=== PATIENT | female | born 1940 | race Two or more races ===

== ENCOUNTER 2016-09-10 14:09 | Inpatient (IN) | payer MEDICARE, MEDICAID ==
[~2016-09-10] VITALS: Ht 157.5 cm; Wt 46.4 kg
[~2016-09-10 14:09] MED LIST: ARIC5TAB PO; GERISUS PO; GLIM1 PO; HYDR-4009 PR; LISI-515 PO; MAPA325T PO; METO25TA3 PO; MILKSUS PO; MIRA33504 PO; OMEP20TA PO; QUES4POW PO; RANI150C PO; SYSTSOL15 EACH EYE
[2016-09-10 15:55] VITALS: BP 153/79; PULSE 97; RESP 18; TEMP 97.8; O2SAT 98
--- NOTE | 2016-09-10 15:55 | PD ---
HPI Chief Complaint: inability to ambulate Time Seen by Provider: 15:52 Travel History International Travel<30 days: No Contact w/Intl Traveler<30days: No Traveled to known affect area: No History of Present Illness HPI 76-year-old female with history of dementia, diabetes, hypertension, sent in from alf by ambulance because after lunch today the patient wasn't able to ambulate. The patient is usually able to ambulate with a walker. When EMS arrived to the alf the patient was able to pivot on her feet. There were no focal neurologic findings. Upon arrival to the emergency department the patient denies any physical complaints. She is able to tell me her name. She denies pain in her head or neck. No chest pain or dyspnea. No abdominal pain. No pain in any joint or extremity. PFSH Past Medical History Alzheimer's Disease: Yes Cardiovascular Problems: Yes High Cholesterol: Yes Dementia: Yes Diabetes: Yes GERD: Yes Hypertension: Yes Menopausal: Yes Social History Alcohol Use: No Tobacco Use: No Substance Use: No Allergies-Medications (Allergen,Severity, Reaction): Coded Allergies: No Known Allergies (Verified , 09/10/16) Reported Meds & Prescriptions Reported Meds & Active Scripts Active Reported Questran (Cholestyramine) 4 Gm/Pkt Powd 4 Gm PO QID PRN 1 packet contains 4gm of cholestyramine. Miralax Powder (Polyethylene Glycol 3350 Powder) 17 Gm Powd 17 Gm PO BID PRN Mix and dissolve one measuring cap-ful (17 grams) in water or juice. Sameera-Lanta Liq (Pikqqmqz-Epgtncxam-Xchbbxvzawp Liq) 200-200-20 Mg/5 Ml Susp 10 Ml PO Q8HR PRN Mapap (Acetaminophen) 325 Mg Tab 650 Mg PO Q6HR PRN Milk of Magnesia Liq (Magnesium Hydroxide) 400 Mg/5 Ml Susp 30 Ml PO DIRECTED PRN Metoprolol Tartrate 25 Mg Tab 25 Mg PO HS Aricept (Donepezil) 5 Mg Tab 5 Mg PO HS Systane Balance Voodoo Opth Drops (Propylene Glycol Opth Drops) 0.6% Soln 1 Drop EACH EYE BID Ranitidine (Ranitidine HCl) 150 Mg Cap 150 Mg PO BID Lisinopril 20 Mg Tab 20 Mg PO DAILY Amaryl (Glimepiride) 1 Mg Tab 0.5 Mg PO DAILY Take with breakfast or first main meal Review of Systems Except as stated in HPI: all other systems reviewed are Neg Physical Exam Narrative GENERAL: Well-developed, frail, elderly appearing female, awake, alert, no acute distress. SKIN: Warm and dry. HEAD: Atraumatic. Normocephalic. EYES: Pupils equal and round. No scleral icterus. No injection or drainage. ENT: Mucous membranes pink and moist. NECK: Trachea midline. No JVD. No nuchal rigidity. CARDIOVASCULAR: Regular rate and rhythm. RESPIRATORY: No accessory muscle use. Clear to auscultation. Breath sounds equal bilaterally. GASTROINTESTINAL: Abdomen soft, non-tender, nondistended. Hepatic and splenic margins not palpable. MUSCULOSKELETAL: No obvious deformities. No clubbing. No cyanosis. No edema. Normal range of motion in all joints and extremities without deformity and without tenderness. NEUROLOGICAL: Awake and alert. No obvious cranial nerve deficits. Motor grossly within normal limits. Normal speech. No focal deficits. Data Data Last Documented VS Vital Signs Date Time Temp Pulse Resp B/P Pulse Ox O2 Delivery O2 Flow Rate FiO2 09/10/16 16:00 16 99 Room Air 09/10/16 16:00 102 09/10/16 15:55 97.8 153/79 Orders Complete Blood Count With Diff (09/10/16 15:52) Comprehensive Metabolic Panel (09/10/16 15:52) Prothrombin Time / Inr (Pt) (09/10/16 15:52) Act Partial Throm Time (Ptt) (09/10/16 15:52) Urinalysis - C+S If Indicated (09/10/16 15:52) Iv Access Insert/Monitor (09/10/16 15:52) Ecg Monitoring (09/10/16 15:52) Oximetry (09/10/16 15:52) Sodium Chloride 0.9% Flush (Ns Flush) (09/10/16 16:00) Electrocardiogram (09/10/16 15:52) Cath For Specimen (09/10/16 15:52) Urine Culture (09/10/16 17:25) Ceftriaxone Inj (Rocephin Inj) (09/10/16 18:00) Ct Brain W/O Iv Contrast(Rout) (09/10/16 ) Sodium Polysty Sulfate Liq (Kayexalate L (09/10/16 18:15) Sodium Chlor 0.9% 1000 Ml Inj (Ns 1000 M (09/10/16 18:15) Insulin Human Regular Inj (Novolin R Inj (09/10/16 18:15) Dextrose 50% In Margret (Vial) Inj (D50w (Vi (09/10/16 18:15) Labs Laboratory Tests Test 09/10/16 09/10/16 16:10 17:25 White Blood Count 11.2 TH/MM3 Red Blood Count 4.96 MIL/MM3 Hemoglobin 14.4 GM/DL Hematocrit 43.0 % Mean Corpuscular Volume 86.7 FL Mean Corpuscular Hemoglobin 29.1 PG Mean Corpuscular Hemoglobin 33.6 % Concent Red Cell Distribution Width 13.6 % Platelet Count 182 TH/MM3 Mean Platelet Volume 9.5 FL Neutrophils (%) (Auto) 56.8 % Lymphocytes (%) (Auto) 33.7 % Monocytes (%) (Auto) 7.8 % Eosinophils (%) (Auto) 1.1 % Basophils (%) (Auto) 0.6 % Neutrophils # (Auto) 6.4 TH/MM3 Lymphocytes # (Auto) 3.8 TH/MM3 Monocytes # (Auto) 0.9 TH/MM3 Eosinophils # (Auto) 0.1 TH/MM3 Basophils # (Auto) 0.1 TH/MM3 CBC Comment DIFF FINAL Differential Comment Prothrombin Time 12.6 SEC Prothromb Time International 1.1 RATIO Ratio Activated Partial 28.3 SEC Thromboplast Time Sodium Level 141 MEQ/L Potassium Level 5.9 MEQ/L Chloride Level 109 MEQ/L Carbon Dioxide Level 24.2 MEQ/L Anion Gap 8 MEQ/L Blood Urea Nitrogen 32 MG/DL Creatinine 1.32 MG/DL Estimat Glomerular Filtration 39 ML/MIN Rate Random Glucose 93 MG/DL Calcium Level 9.5 MG/DL Total Bilirubin 0.8 MG/DL Aspartate Amino Transf 19 U/L (AST/SGOT) Alanine Aminotransferase 24 U/L (ALT/SGPT) Alkaline Phosphatase 82 U/L Total Protein 8.3 GM/DL Albumin 4.1 GM/DL Urine Color LIGHT-YELLOW Urine Turbidity HAZY Urine pH 6.0 Urine Specific [place] 1.009 Urine Protein 100 mg/dL Urine Glucose (UA) NEG mg/dL Urine Ketones NEG mg/dL Urine Occult Blood NEG Urine Nitrite NEG Urine Bilirubin NEG Urine Urobilinogen LESS THAN 2.0 MG/DL Urine Leukocyte Esterase LARGE Urine RBC 6 /hpf Urine WBC 83 /hpf Urine Squamous Epithelial 1 /hpf Cells Urine Bacteria OCC /hpf Microscopic Urinalysis Comment CATH-CULTURE IND MDM Medical Decision Making Medical Screen Exam Complete: Yes Emergency Medical Condition: Yes Medical Record Reviewed: Yes Differential Diagnosis UTI, intracranial abnormality, electrolyte abnormality, dehydration, TIA Narrative Course Vital signs reviewed. CBC is unremarkable. CMP is remarkable for BUN 32, creatinine 1.32, GFR 39, potassium 5.9 UA is suggestive of UTI. CT head: Normal exam EKG does not show any signs of hyperkalemia. The patient was given a dose of Kayexalate, insulin, and D50 for her hyperkalemia. She was given a liter of normal saline and was also given 1 g of Rocephin IV for her UTI. The patient's daughter Dipika is at the bedside and was made aware of all findings. The patient will be admitted for further treatment and evaluation of hyperkalemia, UTI, generalized weakness. Case discussed with [facility] hospitalist SERA Bender. The patient will be admitted to their service under Dr. Bloom. Diagnosis Primary Impression: Generalized weakness Additional Impressions: Hyperkalemia UTI (urinary tract infection) Qualified Code: N39.0 - Urinary tract infection without hematuria, site unspecified Admitting Information Admitting Physician Requests: Observation Adonay Saxena MD Sep 10, 2016 15:55
[2016-09-10 16:00] VITALS: RESP 16; O2SAT 99
[2016-09-10] MEDS ORDERED: SODIUM CHLORIDE 0.9% FLUSH 5 ML FLUSH IVF PRN (16:00)
[2016-09-10 16:35] LABS: AUTOMATED NEUTROPHIL # 6.4 TH/MM3 (1.8-7.7); BASOPHIL # 0.1 TH/MM3 (0-0.2); BASOPHIL % 0.6 % (0.0-2.0); EOSINOPHIL # 0.1 TH/MM3 (0-0.4); EOSINOPHIL % 1.1 % (0.0-4.0); HEMO FLAGS DIFF FINAL; LYMPH % 33.7 % (9.0-44.0); LYMPHOCYTE # 3.8 TH/MM3 (1.0-4.8); MEAN CELL VOLUME 86.7 FL (80.0-100.0); MEAN CORPUSCULAR HEMOGLOBIN 29.1 PG (27.0-34.0); MEAN CORPUSCULAR HGB CONC 33.6 % (32.0-36.0); MONO % 7.8 % (0.0-8.0); NEUT % 56.8 % (16.0-70.0); PLATELET COUNT 182 TH/MM3 (150-450); RED BLOOD COUNT 4.96 MIL/MM3 (4.00-5.30); RED CELL DISTRIBUTION WIDTH 13.6 % (11.6-17.2); WHITE BLOOD COUNT 11.2 TH/MM3 (4.0-11.0)
[2016-09-10 16:42] LABS: APTT (PATIENT) 28.3 SEC (24.3-30.1); INTERNATIONAL NORMALIZED RATIO 1.1 RATIO; PROTHROMBIN TIME - PATIENT 12.6 SEC (9.8-11.6)
[2016-09-10 16:51] LABS: ALT (GPT) 24 U/L (10-53); ANION GAP 8 MEQ/L (5-15); AST (GOT) 19 U/L (15-37); BICARBONATE 24.2 MEQ/L (21.0-32.0); BLOOD UREA NITROGEN 32 MG/DL (7-18); CHLORIDE 109 MEQ/L (98-107); GLOMERULAR FILTRATION RATE 39 ML/MIN (>89); POTASSIUM 5.9 MEQ/L (3.5-5.1); SODIUM (NA) 141 MEQ/L (136-145)
[2016-09-10 16:53] LABS: ALKALINE PHOSPHATASE 82 U/L (45-117); TOTAL BILIRUBIN ADULT 0.8 MG/DL (0.2-1.0)
[2016-09-10 17:53] LABS: BACTERIA, URINE OCC /hpf; BLOOD, URINE NEG (NEG); COMMENT (UR) CATH-CULTURE IND; CULTURE IF INDICATED CATH CULTURE IND; GLUCOSE,URINE NEG (NEG); KETONE, URINE NEG (NEG); NITRITE,URINE NEG (NEG); SQUAMOUS EPITHELIAL CELL URINE 1 /hpf (0-5); URINE COLOR LIGHT-YELLOW (YELLW/STRAW)
[2016-09-10] MEDS ORDERED: cefTRIAXone INJ 1,000 MG in SODIUM CHLORIDE 0.9% INJ 100 ML IV ONE (18:00)
[2016-09-10] MEDS ORDERED: INSULIN HUMAN REGULAR 1,000 UNITS/10 ML VIAL IVP ONE (18:15)
[2016-09-10] MEDS ORDERED: SODIUM CHLOR 0.9% 1000 ML INJ 1,000 ML IV ONE (18:15)
[2016-09-10] MEDS ORDERED: DEXTROSE 50% IN WATER 50 ML VIAL(D50) IV PUSH ONE (18:15)
[2016-09-10] MEDS ORDERED: SODIUM POLYSTYRENE SULFONATE SUSP 15 GM/60 ML CUP PO ONE (18:15)
--- NOTE | 2016-09-10 19:02 | RADRPT ---
EXAM DATE/TIME: 09/10/2016 18:34 [facility] COMPARISON: CT BRAIN W/O CONTRAST, March 22, 2014, 12:39. INDICATIONS : Generalized weakness with inability to ambulate. RADIATION DOSE: 28.04 CTDIvol (mGy) MEDICAL HISTORY : Hypertension. Dementia. Alzheimers. SURGICAL HISTORY : None. ENCOUNTER: Initial ACUITY: 1 day PAIN SCALE: 0/10 LOCATION: cranial TECHNIQUE: Multiple contiguous axial images were obtained of the head. Using automated exposure control and adj ustment of the mA and/or kV according to patient size, radiation dose was kept as low as reasonably a chievable to obtain optimal diagnostic quality images. FINDINGS: CEREBRUM: Atrophy. Extensive calcifications involving the cerebellar hemispheres and basal ganglia bilaterally. Some linear calcifications are seen involving the dura overlying both occipital lobes. This is all s table. The ventricles are normal for age. No evidence of midline shift, mass lesion, hemorrhage or a cute infarction. No extra-axial fluid collections are seen. POSTERIOR FOSSA: The cerebellum and brainstem are intact. The 4th ventricle is midline. The cerebellopontine angle i s unremarkable. EXTRACRANIAL: The visualized portion of the orbits is intact. SKULL: The calvaria is intact. No evidence of skull fracture. CONCLUSION: 1. No acute intracranial abnormality. Toni Love Jr., MD on September 10, 2016 at 18:58 Board Certified Radiologist. This report was verified electronically.
--- NOTE | 2016-09-10 19:18 | EKG ---
Date Performed: 09/10/2016 Time Performed: 16:11:25 PTAGE: 76 years EKG: BASELINE ARTIFACT PRESENT. Sinus rhythm POSSIBLE LEFT ATRIAL ENLARGEMENT BORDERLINE ECG NO SIGNIFICANT CHANGE FROM PRIOR ELECTROCARDIOGRAM. PREVIOUS TRACING : 03/22/2014 12.54 DOCTOR: Filemon Weaver Interpretating Date/Time 09/10/2016 19:18:06
[2016-09-10] MEDS: SODIUM CHLOR 0.9% 1000 ML INJ 1,000 ML IV SCH (19:51)
[2016-09-10] MEDS ORDERED: NALOXONE HCL 0.4 MG/ML AMP IV PRN (20:00)
[2016-09-10] MEDS ORDERED: GLUCAGON 1 MG/ML VIAL OTHER PRN (20:00)
[2016-09-10] MEDS ORDERED: SODIUM CHLORIDE 0.9% FLUSH 5 ML FLUSH FLUSH PRN (20:00)
[2016-09-10] MEDS ORDERED: DEXTROSE 50% IN WATER 50 ML VIAL(D50) IV PUSH PRN (20:00)
[2016-09-10] MEDS ORDERED: ONDANSETRON HCL 4 MG/2 ML VIAL IVP PRN (20:00)
[2016-09-10 20:01] VITALS: BP 156/78; PULSE 79; RESP 18; O2SAT 100
[2016-09-10] MEDS ORDERED: PILL SPLITTER OTHER PRN (20:15)
[2016-09-10] MEDS: SODIUM CHLORIDE 0.9% FLUSH 5 ML FLUSH FLUSH SCH (21:00)
[2016-09-10] MEDS: INSULIN ASPART SUPPLEMENTAL SCALE SQ SCH (21:00)
[2016-09-10] MEDS: ARTIFICIAL TEARS OPTH SOLN 15 ML BTL EACH EYE SCH (21:00)
[2016-09-10] MEDS: DONEPEZIL HCL 5 MG TAB PO SCH (21:19)
[2016-09-10] MEDS: METOPROLOL TARTRATE 25 MG TAB PO SCH (21:20)
[2016-09-10] MEDS: FAMOTIDINE 20 MG TAB PO SCH (21:20)
[2016-09-10 23:30] VITALS: BP 138/68; PULSE 83; RESP 18; O2SAT 99
[2016-09-11] VITALS (11 sets, daily range): BP systolic 112–175; BP diastolic 56–91; PULSE 67–101; RESP 17–20; TEMP 97.5–98; O2SAT 91–99
[2016-09-11] MEDS ORDERED: LORazepam 2 MG/ML VIAL IV SCH (03:15)
[2016-09-11] MEDS ORDERED: RESP: ALBUTEROL 2.5 MG/IPRATROPIUM 0.5 MG NEB (PRN) NEB (03:30)
[2016-09-11] MEDS ORDERED: LORazepam 2 MG/ML VIAL IV PUSH ONE (03:30)
[2016-09-11] MEDS ORDERED: RESP: RACEPINEPHRINE 2.25% 0.5 ML NEB NEB PRN (03:30)
[2016-09-11] MEDS: RESP: ALBUTEROL 2.5 MG/IPRATROPIUM 0.5 MG NEB (SCH) NEB ×4 (05:10→19:50)
[2016-09-11] MEDS: SODIUM CHLOR 0.9% 1000 ML INJ 1,000 ML IV SCH ×2 (05:51→15:51)
[2016-09-11] MEDS: INSULIN ASPART SUPPLEMENTAL SCALE SQ SCH ×4 (06:00→21:06)
[2016-09-11 06:16] LABS: BASOPHIL # 0.1 TH/MM3 (0-0.2); BASOPHIL % 0.4 % (0.0-2.0); EOSINOPHIL # 0.1 TH/MM3 (0-0.4); EOSINOPHIL % 0.6 % (0.0-4.0); HEMATOCRIT 42.5 % (35.0-46.0); HEMO FLAGS DIFF FINAL; LYMPH % 21.2 % (9.0-44.0); MEAN CELL VOLUME 84.3 FL (80.0-100.0); MEAN CORPUSCULAR HEMOGLOBIN 28.8 PG (27.0-34.0); MEAN CORPUSCULAR HGB CONC 34.2 % (32.0-36.0); NEUT % 69.8 % (16.0-70.0); PLATELET COUNT 147 TH/MM3 (150-450); RED BLOOD COUNT 5.05 MIL/MM3 (4.00-5.30); RED CELL DISTRIBUTION WIDTH 13.6 % (11.6-17.2); WHITE BLOOD COUNT 14.3 TH/MM3 (4.0-11.0)
[2016-09-11 06:18] LABS: BICARBONATE 19.2 MEQ/L (21.0-32.0); POTASSIUM 4.1 MEQ/L (3.5-5.1)
[2016-09-11] MEDS: ARTIFICIAL TEARS OPTH SOLN 15 ML BTL EACH EYE SCH ×2 (09:00→21:00)
[2016-09-11] MEDS: SODIUM CHLORIDE 0.9% FLUSH 5 ML FLUSH FLUSH SCH ×2 (09:00→21:00)
[2016-09-11] MEDS: FAMOTIDINE 20 MG TAB PO SCH ×2 (09:00→21:05)
--- NOTE | 2016-09-11 09:30 | HHI.PR ---
Objective Objective Results - Vital Signs Date Time Temp Pulse Resp B/P Pulse Ox O2 Delivery O2 Flow Rate FiO2 09/11/16 09:20 97 21 09/11/16 08:00 97.8 90 17 126/62 97 09/11/16 04:53 98.0 67 18 121/62 98 09/11/16 02:42 93 09/11/16 01:13 98.0 88 18 112/56 98 09/10/16 23:30 83 18 138/68 99 Room Air 09/10/16 20:01 79 18 156/78 100 Room Air 09/10/16 16:00 16 99 Room Air 09/10/16 16:00 102 16 98 Room Air 09/10/16 15:55 97.8 97 18 153/79 98 Result Diagram: 09/11/16 0552 09/11/16 0552 Other Results Laboratory Tests Test 09/10/16 09/10/16 09/11/16 16:10 17:25 05:52 White Blood Count 11.2 14.3 Red Blood Count 4.96 5.05 Hemoglobin 14.4 14.6 Hematocrit 43.0 42.5 Mean Corpuscular Volume 86.7 84.3 Mean Corpuscular Hemoglobin 29.1 28.8 Mean Corpuscular Hemoglobin 33.6 34.2 Concent Red Cell Distribution Width 13.6 13.6 Platelet Count 182 147 Mean Platelet Volume 9.5 10.2 Neutrophils (%) (Auto) 56.8 69.8 Lymphocytes (%) (Auto) 33.7 21.2 Monocytes (%) (Auto) 7.8 8.0 Eosinophils (%) (Auto) 1.1 0.6 Basophils (%) (Auto) 0.6 0.4 Neutrophils # (Auto) 6.4 10.0 Lymphocytes # (Auto) 3.8 3.0 Monocytes # (Auto) 0.9 1.1 Eosinophils # (Auto) 0.1 0.1 Basophils # (Auto) 0.1 0.1 CBC Comment DIFF FINAL DIFF FINAL Differential Comment Prothrombin Time 12.6 Prothromb Time International 1.1 Ratio Activated Partial 28.3 Thromboplast Time Sodium Level 141 140 Potassium Level 5.9 4.1 Chloride Level 109 112 Carbon Dioxide Level 24.2 19.2 Anion Gap 8 9 Blood Urea Nitrogen 32 29 Creatinine 1.32 1.21 Estimat Glomerular Filtration 39 43 Rate Random Glucose 93 134 Calcium Level 9.5 9.1 Total Bilirubin 0.8 Aspartate Amino Transf 19 (AST/SGOT) Alanine Aminotransferase 24 (ALT/SGPT) Alkaline Phosphatase 82 Total Protein 8.3 Albumin 4.1 Urine Color LIGHT-YELLOW Urine Turbidity HAZY Urine pH 6.0 Urine Specific [place] 1.009 Urine Protein 100 Urine Glucose (UA) NEG Urine Ketones NEG Urine Occult Blood NEG Urine Nitrite NEG Urine Bilirubin NEG Urine Urobilinogen LESS THAN 2.0 Urine Leukocyte Esterase LARGE Urine RBC 6 Urine WBC 83 Urine Squamous Epithelial 1 Cells Urine Bacteria OCC Microscopic Urinalysis Comment CATH-CULTURE IND Hematology Comments Date/Time Procedure Status Source Growth 09/10/16 17:25 Urine Culture Received Urine Catheterized Urine Pending Physical Exam Physical Exam PT IS SEEN & EXAMINED D/W ANDER SEE ORDERS SEE H&p WILL F/U Kay Bloom MD Sep 11, 2016 09:30
--- NOTE | 2016-09-11 09:41 | MH ---
cc: RYAN BLOOM MD DATE OF ADMISSION: 09/10/2016 DATE OF 1940 CHIEF COMPLAINT According to the record, unable to ambulate, generalized weakness. HISTORY OF PRESENT ILLNESS This is a 76 year-old [place] female who is currently in a assisted. She was brought in by ambulance due to the patient being unable to ambulate. Normally, the patient can ambulate with a walker according to the records and is able to pivot on her feet with assistance. This acute event was seen after lunch on 09/10/2016. The patient is a poor historian and unable at this time to answer any questions or give any history. According to the record, she does have a significant history of dementia, diabetes and hypertension. In the ER according to the nurse, the patient was verbal. She did speak Ivorian, but became restless and was climbing out of the bed. The patient then started speaking an unknown language and staff could not communicate with her. She was given Ativan 0.5 mg IV which was effective to sedate her and protect her safety against falls. Currently the patient is drowsy. She does have a minimal response verbal response, but is not speaking yes or know. She is relaxed. Does not appear to be in any acute pain. No facial grimace. No grimace upon tactile stimulation. Respiratory rate is regular without shortness of breath. The patient's color is pale with pink mucous membranes. PAST MEDICAL HISTORY According to the record: 1. Alzheimer's disease 2. Cardiovascular problems 3. Hyperlipidemia 4. Dementia 5. GERD 6. Diabetes 7. Hypertension 8. Postmenopausal PAST SURGICAL HISTORY Unknown ALLERGIES No known allergies according to the record. SOCIAL HISTORY No alcohol, tobacco or illicit drugs listed. MEDICATIONS Reconciled include: 1. Questran 2. MiraLax powder 3. Sameera-Lanta liquid 4. Acetaminophen 5. Milk of Magnesia 6. Metoprolol 25 mg p.o. h.s. 7. Aricept 5 mg p.o. h.s. 8. Systane balance ophthalmic drops 9. Zantac 150 mg p.o. twice a day 10. Lisinopril 20 mg daily 11. Amaryl 0.5 mg p.o. daily given with breakfast VITAL SIGNS Include: Temperature 97.8, pulse 90, respiratory rate 17, blood pressure 126/62, O2 sat 97. FAMILY HISTORY Unknown. Please note there is no family with her. REVIEW OF SYSTEMS Unable to obtain secondary to the patient's altered mental status. Information gathered from record. PHYSICAL EXAM GENERAL: This is a well-developed, frail elderly female resting in the bed eyes closed, non-verbal at this time in no acute distress. SKIN: Skin is pale, warm and dry. HEAD, EYES, EARS, NOSE, AND THROAT: Atraumatic, normocephalic. PERRLA. No scleral icterus. Mucous membranes are pink and slightly dry. No drainage from her eyes or nasal cavity. NECK: Supple. No rigidity. No JVD. CARDIOVASCULAR: Regular rate and regular. No murmurs, rubs or gallops audible. RESPIRATORY: Essentially clear anteriorly and posteriorly with low volumes, but equal bilateral. GASTROINTESTINAL: Abdomen is soft, nontender and nondistended. Active bowel sounds in all four quadrants. MUSCULOSKELETAL: No edema. No clubbing. No obvious deformities. NEUROLOGIC: She is drowsy, responds minimally to loud verbal with a yes or no sound, but not verbalizing anything at this time. PSYCHIATRIC: Calm, flat affect. LABORATORY DATA WBC count 14.3, RBC 5.05, hemoglobin 14.6, hematocrit 42.5, platelet count 147, neutrophil auto count 10, monocyte auto count 1.1. Chemistry levels sodium 140, potassium 4.1, chloride 112, carbon dioxide 19.2, anion gap 9, BUN 29, creatinine 1.21, glucose 134, GFR 43. Please note on admission in the ER, the patient's potassium level was 5.9. This was treated and is now 4.1. Coag PT-INR 1.1. Urine is light yellow and hazy. Urine pH is 6, specific gravity 1.009, protein is 100, negative for glucose, ketones, blood, nitrites, bilirubin, large amount of leukocyte esterase. Bacteria, occasional casts. Urine culture is pending. IMAGING STUDIES CT of the head shows no acute intracranial abnormality. ASSESSMENT AND PLAN 1. Generalized weakness, possible UTI without hematuria. 2. Renal insufficiency 3. Hyperkalemia now resolved. 4. History of Alzheimer's dementia. 5. Diabetes mellitus 6. History of GERD. 7. History of hypertension. PLAN 1. Our plan is to admit for observation. 2. We will reconcile her medications. 3. Monitor Accu-Chek's a.c. and h.s. with sliding scale and Protocol. 4. Cardiac monitoring vital signs q4 5. Bedrest 6. Heart healthy diet with monitoring of swallow. 7. As needed medications for fever and monitor temp, pulse, respirations and blood pressure. 8. We will monitor her labs. 9. SCD's 10. DVT prophylaxis 11. PUD prophylaxis The patient is full code, full aggressive care per her admission to the hospital and we will support. Dictated by LAWSON Byers MD RICARDO Patel/SHAILESH /8:54 AM /9:40 AM PT IS SEEN & EXAMINED D/W ANDER SEE ORDERS SEE H&p WILL F/U Ryan Bloom MD Sep 11, 2016 09:30 MTDD
[2016-09-11] MEDS: cefTRIAXone INJ 1,000 MG in SODIUM CHLORIDE 0.9% INJ 100 ML IV SCH ×2 (20:00→21:04)
--- NOTE | 2016-09-11 21:03 | RADRPT ---
EXAM DATE/TIME: 09/11/2016 20:26 [facility] COMPARISON: MRI BRAIN W & W/O CONTRAST, May 11, 2011, 13:43. INDICATIONS : CVA. MEDICAL HISTORY : Diabetes mellitus type 2. SURGICAL HISTORY : None. ENCOUNTER: Initial ACUITY: 1 day PAIN SCORE: Nonresponsive. LOCATION: cranial TECHNIQUE: Multiplanar, multisequence MRI of the brain was performed without contrast. FINDINGS: CEREBRUM: The ventricles are normal for age. No evidence of midline shift, mass lesion, hemorrhage or acute in farction. No extraaxial fluid collections are seen. The pituitary gland and suprasellar cistern are normal in configuration. WHITE MATTER: Extensive chronic small vessel ischemic changes are again noted. There are calcifications in the basa l ganglia bilaterally. POSTERIOR FOSSA: The cerebellum and brainstem are intact. The 4th ventricle is midline. The cerebellopontine angle is unremarkable. The cerebellar tonsils are normal in position. DIFFUSION IMAGING: There are patchy areas of restricted diffusion in the left basal ganglia measuring up to approximatel y 8 mm in greatest diameter. EXTRACRANIAL: The visualized portions of the orbits and paranasal sinuses are unremarkable. CONCLUSION: 1. Patchy areas of restricted diffusion in the left basal ganglia consistent with acute to subacute i nfarctions. 2. Atrophy and extensive chronic small vessel ischemic change. Alfie Clayton MD on September 11, 2016 at 20:58 Board Certified Radiologist. This report was verified electronically.
[2016-09-11] MEDS: DONEPEZIL HCL 5 MG TAB PO SCH (21:05)
[2016-09-11] MEDS: METOPROLOL TARTRATE 25 MG TAB PO SCH (21:05)
[2016-09-12] VITALS (7 sets, daily range): BP systolic 126–161; BP diastolic 73–88; PULSE 93–130; RESP 18–20; TEMP 97.1–100.1; O2SAT 95–100
[2016-09-12] MEDS: SODIUM CHLOR 0.9% 1000 ML INJ 1,000 ML IV SCH ×2 (01:51→12:20)
[2016-09-12] MEDS: RESP: ALBUTEROL 2.5 MG/IPRATROPIUM 0.5 MG NEB (SCH) NEB ×4 (04:20→21:03)
[2016-09-12] MEDS: INSULIN ASPART SUPPLEMENTAL SCALE SQ SCH ×4 (07:00→22:26)
[2016-09-12 07:51] LABS: HEMATOCRIT 41.3 % (35.0-46.0); MEAN CORPUSCULAR HEMOGLOBIN 29.6 PG (27.0-34.0); MEAN CORPUSCULAR HGB CONC 34.9 % (32.0-36.0); PLATELET COUNT 170 TH/MM3 (150-450); RED BLOOD COUNT 4.86 MIL/MM3 (4.00-5.30); RED CELL DISTRIBUTION WIDTH 13.6 % (11.6-17.2); REVIEW FLAG FINAL; WHITE BLOOD COUNT 10.1 TH/MM3 (4.0-11.0)
[2016-09-12 08:22] LABS: BICARBONATE 24.1 MEQ/L (21.0-32.0); POTASSIUM 3.6 MEQ/L (3.5-5.1)
--- NOTE | 2016-09-12 08:37 | HHI.PR ---
Subjective Remarks awake responds to verbal stimuli attempting to talk. Pain, right leg No shortness of breath No nausea vomiting No diarrhea Mild right facial droop (Holley Nassar) Objective Objective Results - Vital Signs Date Time Temp Pulse Resp B/P Pulse Ox O2 Delivery O2 Flow Rate FiO2 09/12/16 08:20 97.1 102 20 147/82 99 09/12/16 04:20 97.9 100 18 152/86 95 09/11/16 23:54 97.5 101 20 175/81 95 09/11/16 19:50 99 Nasal Cannula 2.00 09/11/16 19:37 98.0 100 20 169/91 98 09/11/16 14:59 97.7 71 17 128/68 91 09/11/16 11:45 97.7 80 17 131/61 94 09/11/16 09:20 97 21 (Holley Nassar) Result Diagram: 09/12/16 0640 09/12/16 0640 ROS General: Weakness, Other (8 point ROS done. Limited review due to dementia. Positive for weakness, right upper extremity.) Neuro/MS: Other (dementia, altered mental status mild, resolving) (Holley Nassar) Physical Exam Physical Exam PHYSICAL EXAM GENERAL: This is a well-developed, frail elderly female resting in the bed eyes open randomly, verbal limited at this time in no acute distress. SKIN: Skin is pale, warm and dry. HEAD, EYES, EARS, NOSE, AND THROAT: Atraumatic, normocephalic. PERRLA. No scleral icterus. Mucous membranes are pink and slightly dry. No drainage from her eyes or nasal cavity. Mild right-sided facial droop. NECK: Supple. No rigidity. No JVD. CARDIOVASCULAR: Regular rate and regular. No murmurs, rubs or gallops audible. RESPIRATORY: Essentially clear anteriorly and posteriorly with low volumes, but equal bilateral. GASTROINTESTINAL: Abdomen is soft, nontender and nondistended. Active bowel sounds in all four quadrants. MUSCULOSKELETAL: No edema. No clubbing. No obvious deformities. Right upper extremity weakness. Right lower extremity weak but overcomes resistance. NEUROLOGIC: more awake, responds and follows with eyes at random. Tempting to talk, unable to understand most most of her speech. PSYCHIATRIC: Calm, flat affect. Objective Remarks My right leg hurts (Holley Nassar) A/P Assessment and Plan ASSESSMENT AND PLAN 1. Generalized weakness, possible UTI without hematuria. 2. Renal insufficiency 3. Hyperkalemia now resolved. 4. History of Alzheimer's dementia. 5. Diabetes mellitus 6. History of GERD. 7. History of hypertension. 8. Possible TIA versus CVA Last Impressions Brain MRI 09/11/16 0000 Signed Impressions: Service Date/Time: Sunday, September 11, 2016 20:26 - CONCLUSION: 1. Patchy areas of restricted diffusion in the left basal ganglia consistent with acute to subacute infarctions. 2. Atrophy and extensive chronic small vessel ischemic change. Alfie Clyaton MD Head CT 09/10/16 0000 Signed Impressions: Service Date/Time: Saturday, September 10, 2016 18:34 - CONCLUSION: 1. No acute intracranial abnormality. Toni Love Jr., MD PLAN 1. admit for observation. 2. We will reconcile her medications. 3. Monitor Accu-Chek's a.c. and h.s. with sliding scale and Protocol. 4. Cardiac monitoring vital signs q4 5. Bedrest 6. Heart healthy diet with monitoring of swallow. 7. As needed medications for fever and monitor temp, pulse, respirations and blood pressure. 8. We will monitor her labs. 9. SCD's 10. DVT prophylaxis 11. PUD prophylaxis MRI done. See report, IV Ceftriaxone, added ASA 81, coated The patient is full code, full aggressive care per her admission to the hospital and we will support. Discussed With: Nurse, Family (patient.), Other (Dr. Bloom, patient seen on his behalf.) (Holley Nassar) Assessment and Plan ptis seen & examined d/w Holley MRI +ve Left BG CVA acuet vs subacute Exact onset of CVA is unknown therefore not a candidate for TPA neuro w/u neuro consult ASA lipid panel PT/OT/ST eval f/u urine c/s & adjust abx I called & spoke w PT's daughter over the phone in detail explained her pt's condition,answered all of her questions. she verbalized understanding. Also d/w her Life support issues, pt daughter informed me that pt is a DNR & she wishes to maintain that status in the hospital. PT is DNR, R/B were explained will f/u (Kay Bloom MD) Holley Nassar Sep 12, 2016 08:37 Kay Bloom MD Sep 12, 2016 10:45
[2016-09-12] MEDS: ARTIFICIAL TEARS OPTH SOLN 15 ML BTL EACH EYE SCH (09:00)
--- NOTE | 2016-09-12 09:49 | RADRPT ---
EXAM DATE/TIME: 09/12/2016 09:05 [facility] COMPARISON: US CAROTID ARTERIES, May 11, 2011, 8:33. INDICATIONS : Cerebrovascular accident. MEDICAL HISTORY : Hypercholesterolemia. Hypertension. Gastroesophageal reflux disease. Alzheimer's. dementia. diabetes. SURGICAL HISTORY : No recorded surgical history. ENCOUNTER: Subsequent ACUITY: 1 day PAIN SCORE: Nonresponsive. LOCATION: Bilateral neck PEAK SYSTOLIC VELOCITIES (cm/sec): ICA/CCA RATIO: Right: 1.4 Left: 1.1 ICA: Right: 81 Left: 71 CCA: Right: 59 Left: 63 ECA: Right: 105 Left: 69 VERTEBRAL: Right: 42 antegrade Left: 54 antegrade Elevated flow velocities and ICA/CCA ratios have been found to correlate with increased degrees of vessel stenosis, calculated as percentage of diameter relative to a normal segment of distal ICA/CCA FINDINGS: RIGHT CAROTID: There is mild to moderate noncalcified plaque in the proximal to mid common carotid artery and there is moderate calcified plaque in the carotid bulb and proximal internal carotid artery. The waveforms are within normal limits. LEFT CAROTID: There is mild noncalcified plaque in the mid common carotid artery and mild calcified and noncalcifie d plaque in the carotid bulb. The waveforms are within normal limits. VERTEBRAL ARTERIES: Antegrade flow is seen in both vertebral arteries. MISCELLANEOUS: None. CONCLUSION: 1. Mild to moderate atherosclerotic plaque bilaterally, as above. However, velocity measurements sandee niya less than 50% stenosis within both internal carotid arteries.2. There is antegrade flow within b [facility] vertebral arteries. Lv Hebert MD on September 12, 2016 at 9:41 Board Certified Radiologist. This report was verified electronically.
[2016-09-12] MEDS: SODIUM CHLORIDE 0.9% FLUSH 5 ML FLUSH FLUSH SCH (10:09)
[2016-09-12] MEDS: FAMOTIDINE 20 MG TAB PO SCH ×2 (10:09→22:26)
[2016-09-12] MEDS: ASPIRIN EC 81 MG TABEC PO SCH (10:09)
--- NOTE | 2016-09-12 10:59 | MB ---
cc: MILENA PARKER DATE OF CONSULTATION 09/12/2016 REASON FOR CONSULTATION Stroke HISTORY OF PRESENT ILLNESS Ms. Whitman is an 86-year-old female who says she is right-handed. She lives in a prison. On the , she developed inability to ambulate. She was brought to the emergency room on the . Initially, no focal deficits were noted. She was generally weak. She was found to have a UTI. The patient in her evaluation did have an MRI of the brain which revealed areas of restricted diffusion left basal ganglia consistent with an acute to subacute infarction. No hemorrhage was identified. Upon further questioning, the patient does relate some weakness on the right side, although she did not relate this earlier. PAST MEDICAL HISTORY Her past medical history remarkable for: 1. Significant dementia due to Alzheimer's disease 2. Coronary artery disease 3. Hyperlipidemia 4. Gastroesophageal reflux disease 5. Diabetes 6. Hypertension MEDICATIONS ON ADMISSION 1. Questran 2. MiraLax Ng 3. Sameera-Lanta liquid 4. Tylenol 5. Milk of magnesia 6. Metoprolol 7. Aricept ophthalmic drops 8. Zantac 9. Lisinopril 10. Amaryl 11. She was not on any anticoagulants or aspirin. NEUROLOGIC EXAMINATION Blood pressure is 147/82, pulse 102, she is in sinus rhythm, respirations 20, temperature 97 degrees. Higher cortical function, she is alert. Speech is dysarthric, but she is able to repeat simple phrases and follow commands. She has poor memory. Cranial nerves intact. On motor exam, she appears to move the left side more than the right. She has weakness in the right arm rated at about 4/5. The right leg 4/5. She has normal strength in the left. Reflexes are symmetric. MRI of the brain shows with restricted effusion left basal ganglia consistent with an acute to subacute infarction and patchy areas probably multiple areas, but still confined to the basal ganglia area. CT scan initially was unremarkable. LABORATORY DATA White count is 10,100, hemoglobin 14.4, hematocrit 41%, platelet count 170,000, PT 12.6, INR 1.1, APTT 28.3. Sodium is 142, potassium 3.6 chloride 108, CO2 is 24.1, BUN is 20, creatinine 1.16, GFR is 45, AST is 19, ALT is 24, albumin is 4.1. EKG is sinus rhythm. Carotid ultrasound revealed no evidence of any significant carotid artery stenosis bilaterally. IMPRESSION 1. Left basal ganglia stroke 2. Alzheimer's dementia RECOMMENDATIONS The patient has been started on aspirin 80 mg daily which I agree with. Also recommend checking a lipid panel. We will also obtain an echocardiogram. I also recommend rehab consult. MD MARY Parra/SHAILESH /10:45 AM /10:52 AM
[2016-09-12] MEDS ORDERED: SODIUM CHLORIDE 0.9% FLUSH 5 ML FLUSH IVF PRN (11:00)
[2016-09-12] MEDS ORDERED: DEXTROSE 50% IN WATER 50 ML VIAL(D50) IV PUSH PRN (11:00)
[2016-09-12] MEDS ORDERED: GLUCAGON 1 MG/ML VIAL IM/SQ PRN (11:00)
--- NOTE | 2016-09-12 12:37 | EC ---
Study Study Date:09/12/2016 STUDY CONCLUSIONS SUMMARY LEFT VENTRICLE: The cavity size was normal. Wall thickness was normal. Systolic function was hyperdynamic. The estimated ejection fraction was in the range of 70% to 75%. Wall motion was normal; there were no regional wall motion abnormalities. If LV function is below 40, please consider prescribing an ACEI or ARB or document rationale for non-use. PROCEDURE DATA STUDY STATUS: Elective. Procedure: Transthoracic echocardiography. Image quality was suboptimal. The study was technically limited due to poor acoustic window availability. Scanning was performed from the parasternal, apical, and subcostal acoustic windows. Study completion: The patient tolerated the procedure well. Transthoracic echocardiography. M-mode, complete 2D, complete spectral Doppler, and color Doppler. Patient status: Inpatient. CARDIAC ANATOMY LEFT VENTRICLE: Not well visualized. The cavity size was normal. Wall thickness was normal. Systolic function was hyperdynamic. The estimated ejection fraction was in the range of 70% to 75%. Wall motion was normal; there were no regional wall motion abnormalities. AORTIC VALVE: Trileaflet; normal thickness leaflets. Doppler: Transvalvular velocity was within the normal range. There was no stenosis. No regurgitation. AORTA: Aortic root: The aortic root was normal in size. MITRAL VALVE: Structurally normal valve. Doppler: Transvalvular velocity was within the normal range. There was no evidence for stenosis. No regurgitation. LEFT ATRIUM: The atrium was normal in size. RIGHT VENTRICLE: The cavity size was normal. Wall thickness was normal. PULMONIC VALVE: Doppler: Transvalvular velocity was within the normal range. There was no evidence for stenosis. No regurgitation. TRICUSPID VALVE: Structurally normal valve. Doppler: Transvalvular velocity was within the normal range. No regurgitation. PULMONARY ARTERY: The main pulmonary artery was normal-sized. Systolic pressure was within the normal range. RIGHT ATRIUM: The atrium was normal in size. PERICARDIUM: There was no pericardial effusion. SYSTEMIC VEINS: Inferior vena cava: The vessel was normal in size. BASIC MEASUREMENTS ADULT NORMAL Left ventricle LV internal dimension, ED, chordal level, *28.2 mm 43-52 PLAX LV internal dimension, ES, chordal level, *21.3 mm 23-38 PLAX Fractional shortening, chordal level, PLAX *24 % >29 LV posterior wall thickness, ED 7.31 mm IVS/LVPW ratio, ED *1.6 <1.3 Ventricular septum Septal thickness, ED 11.7 mm Aortic valve Leaflet separation *13 mm 15-26 Right ventricle RV internal dimension, ED, PLAX 19.6 mm 19-38 BASIC MEASUREMENTS ADULT NORMAL Aortic valve Leaflet separation *13 mm 15-26 Aorta Root diameter, ED 26 mm 20-37 Left atrium Anterior-posterior dimension, ES 30 mm 19-40 LA/aortic root ratio 1.15 LEGEND: Mean values are shown as u=mean value. Asterisk (*) quezada values outside specified normal range. Prepared and signed by Peter Spencer [id number]
[2016-09-12] MEDS: METOPROLOL TARTRATE 25 MG TAB PO SCH ×2 (16:06→22:26)
[2016-09-12] MEDS: ACETAMINOPHEN 325 MG TAB PO PRN (16:06)
--- NOTE | 2016-09-12 19:14 | RADRPT ---
EXAM DATE/TIME: 09/12/2016 18:48 [facility] COMPARISON: MRI BRAIN W/O CONTRAST, September 11, 2016, 20:26. CT BRAIN W/O CONTRAST, January 31, 2012, 11:24. CT BR AIN W/O CONTRAST, September 10, 2016, 18:34. INDICATIONS : Altered mental status; evaluate for hemiparesis. RADIATION DOSE: 29.29 CTDIvol (mGy) MEDICAL HISTORY : Dementia. Alzheimer's. Hypertension. SURGICAL HISTORY : None. ENCOUNTER: Initial ACUITY: 2 days PAIN SCALE: Non-responsive LOCATION: cranial TECHNIQUE: Multiple contiguous axial images were obtained of the head. Using automated exposure control and adj ustment of the mA and/or kV according to patient size, radiation dose was kept as low as reasonably a chievable to obtain optimal diagnostic quality images. FINDINGS: Extremely dense bilateral calcification in the lentiform nuclei. Scattered cortical calcifications al so stable. Moderate diminished attenuation in periventricular white matter which is unchanged. No cornell dence of intracranial mass or hemorrhage. Nothing to indicate site of acute infarction. Extracranial structures are stable with mild mucosal sinus disease mainly in the sphenoid on the right. CONCLUSION: No acute intracranial findings Lv Alaniz MD on September 12, 2016 at 19:09 Board Certified Radiologist. This report was verified electronically.
--- NOTE | 2016-09-12 19:27 | HHI.PR ---
Review/Management Diagnosis left basal ganglia cva---CT shows no new findings, no hemorrhage Plan add plavix to aspirin Diagnosis/Plan: Subjective Subjective Comments called to see patient with increasing right sided weakness Active Medications Current Medications Medications (Trade) Dose Ordered Sig/Taras Route Start Time Stop Time Status Last Admin (Tylenol) 650 mg Q4H PRN PO 09/10/16 20:00 09/12/16 16:06 (Zofran Inj) 4 mg Q6H PRN IVP 09/10/16 20:00 Naloxone HCl 0.4 mg 0.4 mg UNSCH PRN IV 09/10/16 20:00 (Rocephin Inj/NS Inj) 100 ml @ 200 mls/hr Q24H IV 09/11/16 20:00 09/11/16 21:04 (Aricept) 5 mg HS PO 09/10/16 21:00 09/11/16 21:05 (Lopressor) 25 mg HS PO 09/10/16 21:00 09/12/16 16:06 (Pepcid) 10 mg BID PO 09/10/16 21:00 09/12/16 10:09 (Tears Naturale Opth Soln) 1 drop BID EACH EYE 09/10/16 21:00 09/11/16 21:00 (Pill Splitter) 1 ea UNSCH PRN OTHER 09/10/16 20:15 (Ecotrin Ec) 81 mg DAILY PO 09/12/16 09:00 09/12/16 10:09 (NS Flush) 2 ml BID IVF 09/12/16 21:00 IV Flush 2 ml 2 ml UNSCH PRN IVF 09/12/16 11:00 (NS 1000 ml Inj) 1,000 ml @ 70 mls/hr [id number] IV 09/12/16 10:46 09/12/16 12:20 (D50w (Vial) Inj) 25 ml UNSCH PRN IV PUSH 09/12/16 11:00 (Glucagon Inj) 1 mg UNSCH PRN IM/SQ 09/12/16 11:00 Allergies Allergies Coded Allergies No Known Allergies (Verified09/10/16) Exam I&O / VS Vital Signs Date Time Temp Pulse Resp B/P Pulse Ox O2 Delivery O2 Flow Rate FiO2 09/12/16 15:21 100.1 129 18 126/88 95 09/12/16 11:20 98.3 130 20 144/74 95 09/12/16 08:20 97.1 102 20 147/82 99 09/12/16 08:00 93 09/12/16 04:20 97.9 100 18 152/86 95 09/11/16 23:54 97.5 101 20 175/81 95 09/11/16 19:50 99 Nasal Cannula 2.00 09/11/16 19:37 98.0 100 20 169/91 98 Exam Comments alert, follow commands eom-intact right umn cn 7 palsey 2/5 RUE and RLE 5/ LUE and LLE Objective Radiology Results stat CT brain tonight--no change Micro and Labs Laboratory Tests Test 09/12/16 06:40 White Blood Count 10.1 Red Blood Count 4.86 Hemoglobin 14.4 Hematocrit 41.3 Mean Corpuscular Volume 85.0 Mean Corpuscular Hemoglobin 29.6 Mean Corpuscular Hemoglobin 34.9 Concent Red Cell Distribution Width 13.6 Platelet Count 170 Mean Platelet Volume 10.0 Sodium Level 142 Potassium Level 3.6 Chloride Level 108 Carbon Dioxide Level 24.1 Anion Gap 10 Blood Urea Nitrogen 20 Creatinine 1.16 Estimat Glomerular Filtration 45 Rate Random Glucose 153 Calcium Level 8.5 Date/Time Procedure Status Source Growth 09/10/16 17:25 Urine Culture - Final Complete Urine Catheterized Urine Klebsiella Pneumoniae Fareed Gomez PhD MD Sep 12, 2016 19:27
[2016-09-12] MEDS: DONEPEZIL HCL 5 MG TAB PO SCH (22:26)
[2016-09-12] MEDS: CLOPIDOGREL 75 MG TAB PO SCH (22:26)
[2016-09-12] MEDS: SODIUM CHLORIDE 0.9% FLUSH 5 ML FLUSH IVF SCH (22:27)
--- NOTE | 2016-09-12 23:19 | RADRPT ---
EXAM DATE/TIME: 09/12/2016 22:57 [facility] COMPARISON: CHEST SINGLE AP, August 08, 2013, 19:21. INDICATIONS : Evalaute for fever. Patient must remain flat, image done supine. MEDICAL HISTORY : Hypertension. Hypercholesterolemia. Gastroesophageal reflux disease. Alzheimers, Diabetes SURGICAL HISTORY : None. ENCOUNTER: Subsequent ACUITY: 3 days PAIN SCORE: 6/10 LOCATION: Bilateral chest FINDINGS: A single view of the chest demonstrates the lungs to be symmetrically aerated without evidence of mas s, infiltrate or effusion. The cardiomediastinal contours are unremarkable. Osseous structures are intact. CONCLUSION: No acute disease. Jose Judd MD on September 12, 2016 at 23:18 Board Certified Radiologist. This report was verified electronically.
[2016-09-13] VITALS (9 sets, daily range): BP systolic 130–154; BP diastolic 58–94; PULSE 94–121; RESP 16–20; TEMP 96.8–98.8; O2SAT 94–99
[2016-09-13] MEDS: SODIUM CHLOR 0.9% 1000 ML INJ 1,000 ML IV SCH ×2 (02:48→15:22)
[2016-09-13] MEDS: RESP: ALBUTEROL 2.5 MG/IPRATROPIUM 0.5 MG NEB (SCH) NEB ×4 (03:43→20:57)
[2016-09-13] MEDS: INSULIN ASPART SUPPLEMENTAL SCALE SQ SCH ×4 (07:34→20:37)
[2016-09-13] MEDS: SODIUM CHLORIDE 0.9% FLUSH 5 ML FLUSH IVF SCH ×2 (09:00→20:37)
[2016-09-13] MEDS: FAMOTIDINE 20 MG TAB PO SCH ×3 (09:00→21:00)
[2016-09-13] MEDS: ARTIFICIAL TEARS OPTH SOLN 15 ML BTL EACH EYE SCH ×3 (09:00→20:37)
[2016-09-13] MEDS: CLOPIDOGREL 75 MG TAB PO SCH ×2 (09:00→10:35)
--- NOTE | 2016-09-13 09:20 | HHI.PR ---
Subjective History of Present Illness awake follow simple commads speech not very clear No N/V No fever or chills no cough or sputum no abd pain no diarrhea offers no oher c/o Vitals/Results Vital Signs Vital Signs Date Time Temp Pulse Resp B/P Pulse Ox O2 Delivery O2 Flow Rate FiO2 09/13/16 07:52 98.8 110 20 133/86 97 09/13/16 04:10 94 18 154/94 97 09/13/16 00:27 111 16 135/77 94 09/12/16 21:04 100 21 09/12/16 20:28 98.4 106 18 161/73 96 09/12/16 15:21 100.1 129 18 126/88 95 09/12/16 11:20 98.3 130 20 144/74 95 CBC/BMP: 09/12/16 0640 09/12/16 0640 Lab Results Laboratory Tests Test 09/13/16 09/13/16 00:13 04:53 Ammonia 22 MCMOL/L Triglycerides Level 107 MG/DL Cholesterol Level 182 MG/DL LDL Cholesterol 112 MG/DL HDL Cholesterol 49.0 MG/DL Cholesterol/HDL Ratio 3.71 RATIO Physical Exam General General Appearance: No Acute Distress, Comfortable Appearance Remarks thinly built elderly female Eyes Eye Exam: Sclera White, Extraocular Movement Intact Ears & Nose Ears & Nose Exam: Nasal Mucosa [place] Throat Throat Exam: Oral Mucosa [place] & Moist Neck Neck Exam: Neck Supple, Trachea Midline Pulmonary Resp Exam: Clear Bilaterally, Breath Sounds Equal Cardiology CV Exam: Regular, Normal Sinus Rhythm Gastrointestinal/Abdomen GI Exam: Soft, Non-Tender, Bowel Sounds Present Integumentary Skin Exam: Warm, Dry Extremeties Extremities Exam: No Edema, Pedal Pulses Palpable Neurologic Neuro Exam: Alert, Awake Neuro Remarks R sided weakness RUExt 2/5 LUE 5/5 RLE 3-4/5 LLE 5/5 PUD Prophylasis PUD Prophylaxis: Protonix Assessment/Plan Assessment/Plan ASSESSMENT AND PLAN . Acute CVA . UTI . . ARF / CKD . sp Hyperkalemia now resolved. . History of Alzheimer's dementia. . Diabetes mellitus . History of GERD. . History of hypertension. . PLAN MRI +ve Left BG CVA acute vs subacute repeat CT head no acute changes/no bleed Plavix added by Neuro cont ASA lipid panel noted cont statin Carotid US mild plaqing b/l ICA , approx 50 % stenosis Echo , NL LVF / EF 70 % Speeh Rec Puree diet w thin liquid PT/OT eval Ur c/s Klebsiella Pna, Sensitive d/c Rocephin, start ceftin IVF accu checks qac & qhs pepcid DNR, DVT prphylaxis BMP in am ss for d/c planning/possible d/c to SNF in am Kay Bloom MD Sep 13, 2016 09:20
[2016-09-13] MEDS: DONEPEZIL HCL 5 MG TAB PO SCH ×2 (10:35→21:00)
[2016-09-13] MEDS: ASPIRIN EC 81 MG TABEC PO SCH (10:35)
--- NOTE | 2016-09-13 20:15 | HHI.PR ---
Review/Management Diagnosis left basal ganglia cva---CT shows no new findings, no hemorrhage Plan continue plavix and asa satin due to elevated LDL monitor cardiac telemetry--r/o afib Diagnosis/Plan: Subjective Subjective Comments No acute events reported Active Medications Current Medications Medications (Trade) Dose Ordered Sig/Taras Route Start Time Stop Time Status Last Admin (Tylenol) 650 mg Q4H PRN PO 09/10/16 20:00 09/12/16 16:06 (Zofran Inj) 4 mg Q6H PRN IVP 09/10/16 20:00 Naloxone HCl 0.4 mg 0.4 mg UNSCH PRN IV 09/10/16 20:00 (Rocephin Inj/NS Inj) 100 ml @ 200 mls/hr Q24H IV 09/11/16 20:00 09/11/16 21:04 (Aricept) 5 mg HS PO 09/10/16 21:00 09/13/16 10:35 (Lopressor) 25 mg HS PO 09/10/16 21:00 09/12/16 16:06 (Pepcid) 10 mg BID PO 09/10/16 21:00 09/13/16 10:36 (Tears Naturale Opth Soln) 1 drop BID EACH EYE 09/10/16 21:00 09/13/16 10:36 (Pill Splitter) 1 ea UNSCH PRN OTHER 09/10/16 20:15 (Ecotrin Ec) 81 mg DAILY PO 09/12/16 09:00 09/13/16 10:35 (NS Flush) 2 ml BID IVF 09/12/16 21:00 09/12/16 22:27 IV Flush 2 ml 2 ml UNSCH PRN IVF 09/12/16 11:00 (NS 1000 ml Inj) 1,000 ml @ 70 mls/hr [id number] IV 09/12/16 10:46 09/13/16 15:22 (D50w (Vial) Inj) 25 ml UNSCH PRN IV PUSH 09/12/16 11:00 (Glucagon Inj) 1 mg UNSCH PRN IM/SQ 09/12/16 11:00 (Plavix) 75 mg DAILY PO 09/12/16 19:30 09/13/16 10:35 Allergies Allergies Coded Allergies No Known Allergies (Verified09/10/16) Exam I&O / VS Vital Signs Date Time Temp Pulse Resp B/P Pulse Ox O2 Delivery O2 Flow Rate FiO2 09/13/16 15:51 98.7 120 20 138/67 96 09/13/16 12:19 98.2 118 20 133/71 97 09/13/16 09:59 99 21 09/13/16 09:58 97 09/13/16 07:52 98.8 110 20 133/86 97 09/13/16 04:10 94 18 154/94 97 09/13/16 00:27 111 16 135/77 94 09/12/16 21:04 100 21 09/12/16 20:28 98.4 106 18 161/73 96 Exam Comments alert, follow commands eom-intact right umn cn 7 palsey 2/5 RUE and RLE 5/5 LUE and LLE Objective Micro and Labs Laboratory Tests Test 09/13/16 09/13/16 00:13 04:53 Ammonia 22 Triglycerides Level 107 Cholesterol Level 182 LDL Cholesterol 112 HDL Cholesterol 49.0 Cholesterol/HDL Ratio 3.71 Date/Time Procedure Status Source Growth 09/10/16 17:25 Urine Culture - Final Complete Urine Catheterized Urine Klebsiella Pneumoniae Diagnostic Tests echocardiogram--normal with no thrombus Fareed Gomez PhD Sep 13, 2016 20:15
[2016-09-13] MEDS: cefTRIAXone INJ 1,000 MG in SODIUM CHLORIDE 0.9% INJ 100 ML IV SCH (20:37)
[2016-09-13] MEDS: METOPROLOL TARTRATE 25 MG TAB PO SCH (21:00)
[2016-09-14] VITALS (11 sets, daily range): BP systolic 104–169; BP diastolic 51–85; PULSE 73–121; RESP 17–19; TEMP 97.2–99.3; O2SAT 94–100
[2016-09-14] MEDS: ACETAMINOPHEN 325 MG TAB PO PRN (02:29)
[2016-09-14] MEDS: SODIUM CHLOR 0.9% 1000 ML INJ 1,000 ML IV SCH ×2 (05:25→20:25)
[2016-09-14] MEDS: INSULIN ASPART SUPPLEMENTAL SCALE SQ SCH ×4 (05:59→20:36)
[2016-09-14] MEDS: ATORVASTATIN 10 MG TAB PO SCH (08:16)
[2016-09-14] MEDS: ASPIRIN EC 81 MG TABEC PO SCH (08:16)
[2016-09-14] MEDS: CLOPIDOGREL 75 MG TAB PO SCH (08:16)
[2016-09-14] MEDS: HEPARIN SODIUM - SQ 10,000 UNITS/ML VIAL SQ SCH ×2 (08:17→20:34)
[2016-09-14] MEDS: SODIUM CHLORIDE 0.9% FLUSH 5 ML FLUSH IVF SCH ×2 (08:17→20:32)
[2016-09-14] MEDS: FAMOTIDINE 20 MG TAB PO SCH ×2 (08:17→20:34)
[2016-09-14] MEDS: ARTIFICIAL TEARS OPTH SOLN 15 ML BTL EACH EYE SCH ×2 (08:21→20:33)
[2016-09-14 08:51] LABS: BICARBONATE 20.2 MEQ/L (21.0-32.0); POTASSIUM 3.7 MEQ/L (3.5-5.1)
[2016-09-14] MEDS: RESP: ALBUTEROL 2.5 MG/IPRATROPIUM 0.5 MG NEB (SCH) NEB ×3 (10:20→20:48)
--- NOTE | 2016-09-14 13:34 | HHI.PR ---
Subjective Subjective Remarks coughing with meals, drooling from right side of mouth difficult to understand speech, garbled right arm and leg weakness no fever unable to obtain ROS Review of Systems Constitutional Constitutional Remarks unable to do ROS Vitals/Results Intake & Output 09/13/16 09/13/16 09/14/16 15:00 23:00 07:00 Intake Total 120 ml 758 ml Balance 120 ml 758 ml Intake Oral 120 ml 100 ml IV Total 658 ml # Voids 1 # Bowel Movements 0 Vital Signs Vital Signs Date Time Temp Pulse Resp B/P Pulse Ox O2 Delivery O2 Flow Rate FiO2 09/14/16 11:52 98.2 95 18 118/60 97 09/14/16 10:20 98 21 09/14/16 10:00 83 09/14/16 07:47 98.0 88 18 105/62 95 09/14/16 04:00 97.3 73 17 104/51 98 09/14/16 02:00 99.3 121 18 160/58 97 09/14/16 00:01 97.6 108 19 132/60 94 09/13/16 21:04 96.8 121 19 130/58 94 09/13/16 20:30 113 09/13/16 15:51 98.7 120 20 138/67 96 CBC/BMP: 09/12/16 0640 09/14/16 0710 Lab Results Laboratory Tests Test 09/14/16 07:10 Sodium Level 143 MEQ/L Potassium Level 3.7 MEQ/L Chloride Level 113 MEQ/L Carbon Dioxide Level 20.2 MEQ/L Anion Gap 10 MEQ/L Blood Urea Nitrogen 20 MG/DL Creatinine 1.34 MG/DL Estimat Glomerular Filtration 38 ML/MIN Rate Random Glucose 139 MG/DL Calcium Level 7.9 MG/DL Physical Exam General General Appearance: No Acute Distress, Comfortable, Malnourished Eyes Eye Exam: Pupils Equal, Pupils Reactive Ears & Nose Ears & Nose Exam: Nasal Mucosa [place] Throat Throat Exam: Oral Mucosa [place] & Moist Neck Neck Exam: Neck Supple, Trachea Midline Pulmonary Resp Exam: Breath Sounds Equal, Decreased Bases Cardiology CV Exam: Regular, Normal Sinus Rhythm Gastrointestinal/Abdomen GI Exam: Soft, Non-Tender, Bowel Sounds Present, Non-Distended Musculoskeletal MS Exam: Joints Intact, Unable to Ambulate Integumentary Skin Exam: Warm, Dry Extremeties Extremities Exam: No Edema, Pedal Pulses Palpable Neurologic Neuro Exam: Awake Neuro Remarks right sided weakness speech garbled VTE Prophylaxis VTE Prophylaxis Meds: Heparin PUD Prophylasis PUD Remarks Pepcid Assessment/Plan Assessment/Plan ASSESSMENT AND PLAN . Acute CVA . UTI . . ARF / CKD . sp Hyperkalemia now resolved. . History of Alzheimer's dementia. . Diabetes mellitus . History of GERD. . History of hypertension. . PLAN appreciate neuro input MRI +ve Left BG CVA acute vs subacute repeat CT head no acute changes/no bleed Plavix added by Neuro cont ASA lipid panel noted cont statin Carotid US mild plaqing b/l ICA , approx 50 % stenosis Echo , NL LVF / EF 70 % Swallow evaluation, rec. Pureed with thin -today having difficulty, will have them eval again. Thickener added PT/OT/ST eval Ur c/s Klebsiella Pna, Sensitive Continue Ceftin Continue IVF, poor PO intake accu checks qac & qhs pepcid for GI prophylaxis Heparin for DVT prophylaxis DNR status CM for discharge planning, [facility] didn't accept consult for SNF, pt. lives at [facility]. if pt. not able to eat much, continues to aspirate, may need peg Hopefully dc in 1-2 days D/W RN D/W Dr. Azul This patient was seen by myself and Dr. Azul, this note is written on his behalf. Chapis Guerrero Sep 14, 2016 13:34
[2016-09-14] MEDS: DONEPEZIL HCL 5 MG TAB PO SCH (20:33)
[2016-09-14] MEDS: METOPROLOL TARTRATE 25 MG TAB PO SCH (20:34)
[2016-09-15] VITALS (9 sets, daily range): BP systolic 139–176; BP diastolic 60–95; PULSE 74–111; RESP 18–19; TEMP 97.2–98.8; O2SAT 97–100
[2016-09-15] MEDS: RESP: ALBUTEROL 2.5 MG/IPRATROPIUM 0.5 MG NEB (SCH) NEB (03:45)
[2016-09-15] MEDS: ACETAMINOPHEN 325 MG TAB PO PRN (04:36)
[2016-09-15] MEDS: INSULIN ASPART SUPPLEMENTAL SCALE SQ SCH ×4 (06:03→20:31)
[2016-09-15 06:55] LABS: HEMATOCRIT 36.5 % (35.0-46.0); MEAN CELL VOLUME 85.2 FL (80.0-100.0); PLATELET COUNT 177 TH/MM3 (150-450); RED BLOOD COUNT 4.28 MIL/MM3 (4.00-5.30); RED CELL DISTRIBUTION WIDTH 13.7 % (11.6-17.2); REVIEW FLAG FINAL; WHITE BLOOD COUNT 12.1 TH/MM3 (4.0-11.0)
[2016-09-15 07:08] LABS: BICARBONATE 20.6 MEQ/L (21.0-32.0); POTASSIUM 3.5 MEQ/L (3.5-5.1)
[2016-09-15] MEDS: SODIUM CHLORIDE 0.9% FLUSH 5 ML FLUSH IVF SCH ×2 (09:00→20:31)
[2016-09-15] MEDS: FAMOTIDINE 20 MG TAB PO SCH ×2 (09:43→20:30)
[2016-09-15] MEDS: CLOPIDOGREL 75 MG TAB PO SCH (09:43)
[2016-09-15] MEDS: ASPIRIN EC 81 MG TABEC PO SCH (09:43)
[2016-09-15] MEDS: HEPARIN SODIUM - SQ 10,000 UNITS/ML VIAL SQ SCH ×2 (09:44→20:31)
[2016-09-15] MEDS: ATORVASTATIN 10 MG TAB PO SCH (09:44)
[2016-09-15] MEDS: ARTIFICIAL TEARS OPTH SOLN 15 ML BTL EACH EYE SCH ×2 (09:45→20:31)
[2016-09-15] MEDS: SODIUM CHLOR 0.9% 1000 ML INJ 1,000 ML IV SCH ×2 (09:56→20:31)
--- NOTE | 2016-09-15 13:37 | HHI.PR ---
Subjective Subjective Remarks on pureed diet with thickener, taking very little awakes to voice, dysarthric, right sided weakness can't communicate well, frustrated unable to obtain ROS sisters at [facility] Review of Systems Constitutional Constitutional Remarks unable to do ROS Vitals/Results Intake & Output 09/14/16 09/14/16 09/15/16 15:00 23:00 07:00 Intake Total 1042 ml 0 ml 50 ml Balance 1042 ml 0 ml 50 ml Intake Oral 480 ml 0 ml 50 ml IV Total 562 ml # Voids 6 2 3 # Bowel Movements 6 2 0 Vital Signs Vital Signs Date Time Temp Pulse Resp B/P Pulse Ox O2 Delivery O2 Flow Rate FiO2 09/15/16 12:43 74 09/15/16 12:30 97.6 94 19 153/60 97 09/15/16 11:00 100 09/15/16 10:17 99 21 09/15/16 08:00 98.4 100 18 142/82 100 09/15/16 04:00 97.2 107 18 153/71 98 09/15/16 00:00 97.3 100 18 139/74 97 09/14/16 20:49 97 09/14/16 20:01 119 09/14/16 20:00 97.2 115 18 167/82 96 09/14/16 16:00 98.3 110 18 169/85 100 CBC/BMP: 09/15/16 0612 09/15/16 0612 Lab Results Laboratory Tests Test 09/15/16 06:12 White Blood Count 12.1 TH/MM3 Red Blood Count 4.28 MIL/MM3 Hemoglobin 12.4 GM/DL Hematocrit 36.5 % Mean Corpuscular Volume 85.2 FL Mean Corpuscular Hemoglobin 29.0 PG Mean Corpuscular Hemoglobin 34.0 % Concent Red Cell Distribution Width 13.7 % Platelet Count 177 TH/MM3 Mean Platelet Volume 10.3 FL Sodium Level 143 MEQ/L Potassium Level 3.5 MEQ/L Chloride Level 112 MEQ/L Carbon Dioxide Level 20.6 MEQ/L Anion Gap 10 MEQ/L Blood Urea Nitrogen 15 MG/DL Creatinine 1.02 MG/DL Estimat Glomerular Filtration 53 ML/MIN Rate Random Glucose 171 MG/DL Calcium Level 8.3 MG/DL Physical Exam General General Appearance: No Acute Distress, Comfortable, Malnourished Eyes Eye Exam: Pupils Equal, Pupils Reactive Ears & Nose Ears & Nose Exam: Nasal Mucosa [place] Throat Throat Exam: Oral Mucosa [place] & Moist Neck Neck Exam: Neck Supple, Trachea Midline Pulmonary Resp Exam: Breath Sounds Equal, Decreased Bases Cardiology CV Exam: Regular, Normal Sinus Rhythm Gastrointestinal/Abdomen GI Exam: Soft, Non-Tender, Bowel Sounds Present, Non-Distended Musculoskeletal MS Exam: Joints Intact, Unable to Ambulate Integumentary Skin Exam: Warm, Dry Extremeties Extremities Exam: No Edema, Pedal Pulses Palpable Neurologic Neuro Exam: Awake Neuro Remarks right sided weakness speech garbled VTE Prophylaxis VTE Prophylaxis Meds: Heparin PUD Prophylasis PUD Remarks Pepcid Assessment/Plan Assessment/Plan ASSESSMENT AND PLAN . Acute CVA . UTI . . ARF / CKD . sp Hyperkalemia now resolved. . History of Alzheimer's dementia. . Diabetes mellitus . History of GERD. . History of hypertension. . Dysphagia PLAN appreciate neuro input MRI +ve Left BG CVA acute vs subacute repeat CT head no acute changes/no bleed Plavix added by Neuro cont ASA lipid panel noted cont statin Carotid US mild plaqing b/l ICA , approx 50 % stenosis Echo , NL LVF / EF 70 % Swallow evaluation, rec. Pureed with Thickener added PT/OT/ST eval Ur c/s Klebsiella Pna, Sensitive Continue Ceftin Continue IVF, poor PO intake accu checks qac & qhs pepcid for GI prophylaxis Heparin for DVT prophylaxis DNR status CM for discharge planning, [facility] didn't accept consult for SNF, pt. lives at [facility]. not taking enough PO, needs peg, spoke to daughter Lorenza-she's agreeable with peg tube Consult GI for peg placement Dietary consult for tube feeding hopefully discharge on Friday after tube feeding started. D/W RN D/W pt's daughter, Lorenza and sisters at [facility] D[facility]W Dr. Azul This patient was seen by myself and Dr. Azul, this note is written on his behalf. Chapis Guerrero Sep 15, 2016 13:37
[2016-09-15] MEDS: DONEPEZIL HCL 5 MG TAB PO SCH (20:30)
[2016-09-15] MEDS: METOPROLOL TARTRATE 25 MG TAB PO SCH (20:30)
[2016-09-16] VITALS (9 sets, daily range): BP systolic 144–165; BP diastolic 71–96; PULSE 90–123; RESP 16–18; TEMP 97–101.3; O2SAT 96–100
[2016-09-16] MEDS: INSULIN ASPART SUPPLEMENTAL SCALE SQ SCH ×4 (05:46→22:28)
--- NOTE | 2016-09-16 08:34 | PD.CONS ---
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 She was evaluated by neurology and started on ASA/Plavix and is on Plavix. The heparin was last given last night and the Plavix is on hold. She is unable to provide any history and therefore the history has been obtained from the EMR. Speech therapy is following and has recommended a puree diet with nectar consistency thickened liquids, but she has been taking very minimal po. The aide reports that she will only take a bite or two of her meals. GI has been consulted for PEG tube placement. Called daughter Lorenza Whitman to discuss EGD with PEG tube placement- procedure, risk, benefits and she would like to proceed. (Yadi John) PFSH Past Medical History Alzheimer's Dementia HTN DM GERD Hyperlipidemia Past Surgical History Unable to obtain (Yadi John) Coded Allergies: No Known Allergies (Verified , 09/10/16) Medications Allergies Coded Allergies Type Severity Reaction Last Updated Verified No Known Allergies 09/10/16 Yes Active Scripts Medications Dose Route/Sig Days Date Category Dose Instructions Questran (Cholestyramine) 4 Gm/Pkt Powd 4 Gm PO QID PRN 07/10/16 Reported 1 packet contains 4gm of cholestyramine. Miralax Powder (Polyethylene Glycol 3350 Powder) 17 Gm Powd 17 Gm PO BID PRN 07/10/16 Reported Mix and dissolve one measuring cap-ful (17 grams) in water or juice. Sameera-Lanta Liq (Smyejqni-Ivqqukxkt-Owrgndfqcql Liq) 200-200-20 Mg/5 Ml Susp 10 Ml PO Q8HR PRN 07/10/16 Reported Mapap (Acetaminophen) 325 Mg Tab 650 Mg PO Q6HR PRN 07/10/16 Reported Milk of Magnesia Liq (Magnesium Hydroxide) 400 Mg/5 Ml Susp 30 Ml PO DIRECTED PRN 07/10/16 Reported Metoprolol Tartrate 25 Mg Tab 25 Mg PO HS 07/10/16 Reported Aricept (Donepezil) 5 Mg Tab 5 Mg PO HS 07/10/16 Reported Systane Balance Restorationist Opth Drops (Propylene Glycol Opth Drops) 0.6% Soln 1 Drop EACH EYE BID 07/10/16 Reported Ranitidine (Ranitidine HCl) 150 Mg Cap 150 Mg PO BID 07/10/16 Reported Lisinopril 20 Mg Tab 20 Mg PO DAILY 07/10/16 Reported Amaryl (Glimepiride) 1 Mg Tab 0.5 Mg PO DAILY 07/10/16 Reported Take with breakfast or first main meal Family History Unable to obtain Social History Unable to obtain (Yadi John) Review of Systems ROS Unable to obtain (Yadi John) GI Exam Vitals I&O Vital Signs Date Time Temp Pulse Resp B/P Pulse Ox O2 Delivery O2 Flow Rate FiO2 09/16/16 04:00 98.6 90 17 158/75 97 09/16/16 00:00 98.7 105 18 144/96 100 09/15/16 20:00 81 09/15/16 20:00 97.9 111 18 176/81 98 09/15/16 16:00 98.8 96 18 162/95 98 09/15/16 12:43 74 09/15/16 12:30 97.6 94 19 153/60 97 09/15/16 11:00 100 09/15/16 10:17 99 21 I/O 09/15/16 09/15/16 09/15/16 09/16/16 09/16/16 09/16/16 07:00 15:00 23:00 07:00 15:00 23:00 Intake Total 50 ml 240 ml 1463 ml Balance 50 ml 240 ml 1463 ml Intake Oral 50 ml 240 ml 10 ml IV Total 1453 ml # Voids 3 5 1 # Bowel Movements 0 0 0 Imaging Last Impressions Head CT 09/12/16 0000 Signed Impressions: Service Date/Time: August 18:48 - CONCLUSION: No acute intracranial findings Lv Alaniz MD Chest X-Ray 09/12/16 0000 Signed Impressions: Service Date/Time: August 22:57 - CONCLUSION: No acute disease. Jose Judd MD Carotid Artery Ultrasound 09/12/16 0000 Signed Impressions: Service Date/Time: August 09:05 - CONCLUSION: 1. Mild to moderate atherosclerotic plaque bilaterally, as above. However, velocity measurements indicate less than 50%% stenosis within both internal carotid arteries. 2. There is antegrade flow within both vertebral arteries. Lv Hebert MD Brain MRI 09/11/16 0000 Signed Impressions: Service Date/Time: Sunday, September 11, 2016 20:26 - CONCLUSION: 1. Patchy areas of restricted diffusion in the left basal ganglia consistent with acute to subacute infarctions. 2. Atrophy and extensive chronic small vessel ischemic change. Alfie Clayton MD Physical Examination HEENT: Normocephalic; atraumatic; no jaundice. CHEST: CTA CARDIAC: RRR ABDOMEN: Soft, nondistended, suprapubic tenderness; no hepatosplenomegaly; bowel sounds are present in all four quadrants. EXTREMITIES: No clubbing, cyanosis, or edema. CUTTER HOT KNIFE: Right sided weakness (Yadi John) Assessment and Plan Plan ASSESSMENT: - Dysphagia, Poor po intake. S/P acute left basal ganglia CVA. ST is following and has recommended a puree diet with nectar consistency thickened liquids, but she has been taking very minimal po. GI has been consulted for PEG tube placement. Called daughter Lorenza Whitman to discuss EGD with PEG tube placement- procedure, risk, benefits and she would like to proceed. Last heparin dose was last night at 9pm, d/w nurse to hold this am's heparin/ plavix/asa. Will schedule for today. PLAN: - Plan for egd with peg tube placement today - Obtain consents - NPO - Hold today's 9am heparin, plavix, asa- d/w nurse - Armor Officer consult for tf recommendations - Supportive care - Further recommendations to follow based on results of above - Pt seen and examined by Dr. Victoria and myself and this note is written on his behalf (Yadi John) Physician Comments Patient seen and examined Agree with above Continue with current supportive care Monitor labs Plan PEG today (Rajat Victoria MD) Yadi John Sep 16, 2016 08:34 Rajat Victoria MD Sep 16, 2016 19:43
[2016-09-16] MEDS: SODIUM CHLORIDE 0.9% FLUSH 5 ML FLUSH IVF SCH ×2 (09:00→21:00)
[2016-09-16] MEDS: ATORVASTATIN 10 MG TAB PO SCH (09:04)
[2016-09-16] MEDS: FAMOTIDINE 20 MG TAB PO SCH ×2 (09:04→22:27)
[2016-09-16] MEDS: ARTIFICIAL TEARS OPTH SOLN 15 ML BTL EACH EYE SCH (09:05)
[2016-09-16] MEDS ORDERED: ceFAZolin 2 GM/50 ML BAG IV ONE (11:34)
--- NOTE | 2016-09-16 11:52 | PD.PROCEDR ---
GI Procedure REFERRING PHYSICIAN Dr. Bloom PROCEDURE PERFORMED EGD with PEG placement INDICATION FOR PROCEDURE Recent history of a CVA with dysphagia PROCEDURE: The procedure, risks and benefits were discussed with Ms. Whitman and informed consent was obtained. Anesthesia sedated her with Diprivan. She was placed in the left lateral decubitus position. EGD: The Pentax videoscope was introduced through the oropharynx and advanced to the second portion of the duodenum under direct visualization. Retroflexion was performed in the stomach. FINDINGS: The esophagus this was unremarkable The stomach there was a large hiatal hernia otherwise gastric mucosa was unremarkable and within normal limits Following the evaluation of the stomach and the duodenum the stomach was insufflated with air and the area of PEG placement was identified through indentation and transillumination the area was prepped and draped in usual fashion 5 cc of lidocaine were injected locally a small incision was made then an Angiocath was passed into the stomach through which a guidewire was passed this was retrieved with the scope into that a PEG tube was attached and pulled into place and thereafter secured in usual fashion The patient tolerated procedure well and there are no immediate complications The duodenum this was normal ESTIMATED BLOOD LOSS: None SPECIMENS REMOVED: None COMPLICATIONS: None IMPRESSION: Large hiatal hernia otherwise unremarkable EGD Successful PEG placement PLAN: PLAN: 1. May use PEG tube for medications today 2. May start feeding tomorrow 3. May obtain nutritional consult for tube feeding 4. Flush tube with 50 cc of water every 4-6 hours 5. Always flush tube after feedings 6. Apply abdominal binder as necessary 7. Clamp G-tube after use and flush. Rajat Victoria MD Sep 16, 2016 11:52
--- NOTE | 2016-09-16 14:29 | HHI.PR ---
Subjective Subjective Remarks S/P PEG placement tolerated well awake, not talking much no fever unable to obtain ROS Review of Systems Constitutional Constitutional Remarks unable to do ROS Vitals/Results Intake & Output 09/15/16 09/15/16 09/16/16 15:00 23:00 07:00 Intake Total 240 ml 1463 ml Balance 240 ml 1463 ml Intake Oral 240 ml 10 ml IV Total 1453 ml # Voids 5 1 # Bowel Movements 0 0 Vital Signs Vital Signs Date Time Temp Pulse Resp B/P Pulse Ox O2 Delivery O2 Flow Rate FiO2 09/16/16 12:10 79 16 125/66 96 09/16/16 12:10 97.0 104 16 158/71 96 09/16/16 12:00 94 16 122/67 96 09/16/16 11:51 97.7 97 16 127/68 97 09/16/16 09:24 98 21 09/16/16 08:40 103 09/16/16 08:00 97.7 100 16 165/88 98 09/16/16 04:00 98.6 90 17 158/75 97 09/16/16 00:00 98.7 105 18 144/96 100 09/15/16 20:00 81 09/15/16 20:00 97.9 111 18 176/81 98 09/15/16 16:00 98.8 96 18 162/95 98 CBC/BMP: 09/15/16 0612 09/15/16 0612 Physical Exam General General Appearance: No Acute Distress, Comfortable, Malnourished Eyes Eye Exam: Pupils Equal, Pupils Reactive Ears & Nose Ears & Nose Exam: Nasal Mucosa [place] Throat Throat Exam: Oral Mucosa [place] & Moist Neck Neck Exam: Neck Supple, Trachea Midline Pulmonary Resp Exam: Breath Sounds Equal, Decreased Bases Cardiology CV Exam: Regular, Normal Sinus Rhythm Gastrointestinal/Abdomen GI Exam: Soft, Non-Tender, Bowel Sounds Present, Non-Distended GI Remarks PEG LUQ dressing D/I Musculoskeletal MS Exam: Joints Intact, Unable to Ambulate Integumentary Skin Exam: Warm, Dry Extremeties Extremities Exam: No Edema, Pedal Pulses Palpable Neurologic Neuro Exam: Awake Neuro Remarks right sided weakness speech garbled VTE Prophylaxis VTE Prophylaxis Meds: Heparin PUD Prophylasis PUD Remarks Pepcid Assessment/Plan Assessment/Plan ASSESSMENT AND PLAN . Acute CVA . UTI . . ARF / CKD . sp Hyperkalemia now resolved. . History of Alzheimer's dementia. . Diabetes mellitus . History of GERD. . History of hypertension. . Dysphagia PLAN appreciate neuro input MRI +ve Left BG CVA acute vs subacute repeat CT head no acute changes/no bleed Plavix added by Neuro cont ASA lipid panel noted cont statin Carotid US mild plaqing b/l ICA , approx 50 % stenosis Echo , NL LVF / EF 70 % Swallow evaluation, rec. Pureed with Thickener added PT/OT/ST eval Ur c/s Klebsiella Pna, Sensitive Continue Ceftin Continue IVF, poor PO intake accu checks qac & qhs pepcid for GI prophylaxis Heparin for DVT prophylaxis DNR status CM for discharge planning, [facility] didn't accept consult for SNF, pt. lives at [facility]. not taking enough PO, needs peg, spoke to daughter Lorenza-she's agreeable with peg tube appreciate GI input S/P peg tube 09/16 start tube feeding tomorrow hopefully discharge later tomorrow or fri. D/W RN D/W Dr. Azul This patient was seen by myself and Dr. Azul, this note is written on his behalf. Chapis Guerrero Sep 16, 2016 14:29
[2016-09-16] MEDS: SODIUM CHLOR 0.9% 1000 ML INJ 1,000 ML IV SCH (14:52)
[2016-09-16] MEDS ORDERED: PROPOFOL 200 MG/20 ML AMP IV ONE (15:19)
--- NOTE | 2016-09-16 18:04 | HHI.PR ---
Review/Management Diagnosis left basal ganglia cva Plan resume plavix and aspirin when ok with GI Diagnosis/Plan: Subjective Subjective Comments No acute events reported Active Medications Current Medications Medications (Trade) Dose Ordered Sig/Taras Route Start Time Stop Time Status Last Admin (Tylenol) 650 mg Q4H PRN PO 09/10/16 20:00 09/15/16 04:36 (Zofran Inj) 4 mg Q6H PRN IVP 09/10/16 20:00 (Narcan Inj) 0.4 mg UNSCH PRN IV 09/10/16 20:00 (Aricept) 5 mg HS PO 09/10/16 21:00 09/15/16 20:30 (Lopressor) 25 mg HS PO 09/10/16 21:00 09/15/16 20:30 (Pepcid) 10 mg BID PO 09/10/16 21:00 09/16/16 09:04 (Tears Naturale Opth Soln) 1 drop BID EACH EYE 09/10/16 21:00 09/16/16 09:05 (Pill Splitter) 1 ea UNSCH PRN OTHER 09/10/16 20:15 (Ecotrin Ec) 81 mg DAILY PO 09/12/16 09:00 Hold 09/15/16 09:43 (NS Flush) 2 ml BID IVF 09/12/16 21:00 09/14/16 20:32 IV Flush 2 ml 2 ml UNSCH PRN IVF 09/12/16 11:00 (NS 1000 ml Inj) 1,000 ml @ 70 mls/hr [id number] IV 09/12/16 10:46 09/16/16 14:52 (D50w (Vial) Inj) 25 ml UNSCH PRN IV PUSH 09/12/16 11:00 (Glucagon Inj) 1 mg UNSCH PRN IM/SQ 09/12/16 11:00 (Plavix) 75 mg DAILY PO 09/12/16 19:30 Hold 09/15/16 09:43 (Lipitor) 10 mg DAILY PO 09/14/16 09:00 09/16/16 09:04 (Heparin Inj) 5,000 units Q12HR SQ 09/14/16 09:00 Hold 09/15/16 20:31 (Pneumovax-23 Inj) 25 mcg ONCE ONCE IM 09/17/16 10:00 09/17/16 10:01 Allergies Allergies Coded Allergies No Known Allergies (Verified09/10/16) Exam I&O / VS 09/15/16 09/15/16 09/16/16 15:00 23:00 07:00 Intake Total 240 ml 1463 ml Balance 240 ml 1463 ml Intake Oral 240 ml 10 ml IV Total 1453 ml # Voids 5 1 # Bowel Movements 0 0 Vital Signs Date Time Temp Pulse Resp B/P Pulse Ox O2 Delivery O2 Flow Rate FiO2 09/16/16 12:10 79 16 125/66 96 09/16/16 12:10 97.0 104 16 158/71 96 09/16/16 12:00 94 16 122/67 96 09/16/16 11:51 97.7 97 16 127/68 97 09/16/16 09:24 98 21 09/16/16 08:40 103 09/16/16 08:00 97.7 100 16 165/88 98 09/16/16 04:00 98.6 90 17 158/75 97 09/16/16 00:00 98.7 105 18 144/96 100 09/15/16 20:00 81 09/15/16 20:00 97.9 111 18 176/81 98 Exam Comments lethargic, follow commands eom-intact right umn cn 7 palsey 3/5 RUE and RLE 5/5 Fareed Graham PhD MD Sep 16, 2016 18:04
[2016-09-16] MEDS: METOPROLOL TARTRATE 25 MG TAB PO SCH (22:27)
[2016-09-16] MEDS: DONEPEZIL HCL 5 MG TAB PO SCH (22:27)
[2016-09-17] VITALS (9 sets, daily range): BP systolic 120–169; BP diastolic 65–97; PULSE 55–119; RESP 16–18; TEMP 97–98.4; O2SAT 93–98
[2016-09-17] MEDS: ARTIFICIAL TEARS OPTH SOLN 15 ML BTL EACH EYE SCH ×3 (02:28→22:38)
[2016-09-17] MEDS: ACETAMINOPHEN 325 MG TAB PO PRN (04:37)
[2016-09-17] MEDS: SODIUM CHLOR 0.9% 1000 ML INJ 1,000 ML IV SCH ×2 (04:38→22:38)
[2016-09-17] MEDS: INSULIN ASPART SUPPLEMENTAL SCALE SQ SCH ×4 (06:28→22:37)
[2016-09-17] MEDS: SODIUM CHLORIDE 0.9% FLUSH 5 ML FLUSH IVF SCH ×2 (09:00→21:00)
[2016-09-17] MEDS: ATORVASTATIN 10 MG TAB PO SCH (09:12)
[2016-09-17] MEDS: FAMOTIDINE 20 MG TAB PO SCH ×2 (09:13→22:36)
[2016-09-17] MEDS ORDERED: PNEUMOCOCCAL POLYVALENT INJ 25 MCG/0.5 ML SYR IM ONE (10:00)
--- NOTE | 2016-09-17 15:11 | HHI.PR ---
Subjective Hospital Day: 6 Subjective Remarks No remarks Opens eyes and responds to voice Nonspeaking, but does appear to understand simple commands No facial grimace Right facial droop, patient will smile on command Alert Review of Systems Constitutional Constitutional: Weakness (generalized. 10 point ROS done, positives include generalized weakness and right facial droop, not speaking, . All other systems negative.) Constitutional Remarks I'll facial droop Musculoskeletal MS: Weakness Neurologic Neurologic Remarks Alert, not speaking Vitals/Results Intake & Output 09/16/16 09/16/16 09/17/16 15:00 23:00 07:00 Intake Total 290 ml 0 ml 0 ml Balance 290 ml 0 ml 0 ml Intake Oral 240 ml 0 ml 0 ml Other 50 ml # Voids 6 4 3 # Bowel Movements 1 0 0 Vital Signs Vital Signs Date Time Temp Pulse Resp B/P Pulse Ox O2 Delivery O2 Flow Rate FiO2 09/17/16 12:00 97.8 98 18 136/71 98 09/17/16 08:20 101 09/17/16 08:00 98.4 102 16 120/65 97 09/17/16 04:55 98.2 103 18 136/97 93 09/17/16 00:33 97.4 100 18 126/78 96 09/16/16 22:05 101.0 123 18 159/95 98 09/16/16 21:00 109 09/16/16 16:10 101.3 104 16 164/95 98 CBC/BMP: 09/15/16 0612 09/15/16 0612 Current Medications Active Medications Fentanyl Citrate (fentaNYL INJ) 100 mcg STK-MED ONCE IV; Start 09/16/16 at 15:19 ; Stop 09/16/16 at 15:20; Status DC Pneumococcal Polyvalent Vaccine (Pneumovax-23 Inj) 25 mcg ONCE ONCE IM Last administered on 09/17/16t 09:25; Admin Dose 25 MCG; Start 09/17/16 at 10:00; Stop 09/17/16 at 10:01; Status DC Propofol (Diprivan 200 Mg/20 ml Inj) 100 mg STK-MED ONCE IV; Start 09/16/16 at 15:19; Stop 09/16/16 at 15:20; Status DC Physical Exam General General Appearance: No Acute Distress, Comfortable, Malnourished Eyes Eye Exam: Pupils Equal, Pupils Reactive Ears & Nose Ears & Nose Exam: Nasal Mucosa [place] Throat Throat Exam: Oral Mucosa [place] & Moist Neck Neck Exam: Neck Supple, Trachea Midline Pulmonary Resp Exam: Breath Sounds Equal, No Distress, Decreased Bases, Poor Inspiratory Effort Cardiology CV Exam: Regular, Normal Sinus Rhythm Gastrointestinal/Abdomen GI Exam: Soft, Non-Tender, Bowel Sounds Present, Non-Distended Musculoskeletal MS Exam: Joints Intact, Unable to Ambulate Integumentary Skin Exam: Warm, Dry Extremeties Extremities Exam: No Edema, Pedal Pulses Palpable Neurologic Neuro Exam: Awake Neuro Remarks Does not following simple commands VTE Prophylaxis VTE Prophylaxis Meds: Heparin Assessment/Plan Assessment/Plan ASSESSMENT AND PLAN . Acute CVA . UTI . . ARF / CKD . sp Hyperkalemia now resolved. . History of Alzheimer's dementia. . Diabetes mellitus . History of GERD. . History of hypertension. . Dysphagia PLAN appreciate neuro input MRI +ve Left BG CVA acute vs subacute repeat CT head no acute changes/no bleed Plavix added by Neuro cont ASA Carotid US mild plaqing b/l ICA , approx 50 % stenosis, medical management Echo , NL LVF / EF 70 % Swallow evaluation, rec. Pureed with Thickener added instructed sister to sit patient straight up, always thicken liquids and foods. High risk for aspiration PT/OT/ST eval Ur c/s Klebsiella Pna, Sensitive Continue Ceftin poor PO intake PEG tube placed on 09-16, tube feedings at 30 cc an hour. Increase rate for toleration and look at discharge within the next 24-48 hours accu checks qac & qhs pepcid for GI prophylaxis Heparin for DVT prophylaxis DNR status CM for discharge planning, [facility] didn't accept. Spoke to case management today. Looking at another [facility] facility, [facility], which has accepted her. Discussed with sister. appreciate GI input. S/P peg tube 09/16 D/W CM D/W Dr. Azul This patient was seen by myself and Dr. Azul, this note is written on his behalf. Holley Nassar Sep 17, 2016 15:11
--- NOTE | 2016-09-17 15:15 | HHI.GIFU ---
Subjective Remarks Resting in bed. No distress. TF started and so far is tolerating. (Yadi John MODELING DIRECTOR) Objective Vitals I&O Vital Signs Date Time Temp Pulse Resp B/P Pulse Ox O2 Delivery O2 Flow Rate FiO2 09/17/16 12:00 97.8 98 18 136/71 98 09/17/16 08:20 101 09/17/16 08:00 98.4 102 16 120/65 97 09/17/16 04:55 98.2 103 18 136/97 93 09/17/16 00:33 97.4 100 18 126/78 96 09/16/16 22:05 101.0 123 18 159/95 98 09/16/16 21:00 109 09/16/16 16:10 101.3 104 16 164/95 98 I/O 09/16/16 09/16/16 09/16/16 09/17/16 09/17/16 09/17/16 07:00 15:00 23:00 07:00 15:00 23:00 Intake Total 290 ml 0 ml 0 ml Balance 290 ml 0 ml 0 ml Intake Oral 240 ml 0 ml 0 ml Other 50 ml # Voids 6 4 3 # Bowel Movements 1 0 0 Imaging Last Impressions Head CT 09/12/16 0000 Signed Impressions: Service Date/Time: August 18:48 - CONCLUSION: No acute intracranial findings Lv Alaniz MD Chest X-Ray 09/12/16 0000 Signed Impressions: Service Date/Time: August 22:57 - CONCLUSION: No acute disease. oJse Judd MD Carotid Artery Ultrasound 09/12/16 0000 Signed Impressions: Service Date/Time: August 09:05 - CONCLUSION: 1. Mild to moderate atherosclerotic plaque bilaterally, as above. However, velocity measurements indicate less than 50%% stenosis within both internal carotid arteries. 2. There is antegrade flow within both vertebral arteries. Lv Hebert MD Brain MRI 09/11/16 0000 Signed Impressions: Service Date/Time: Sunday, September 11, 2016 20:26 - CONCLUSION: 1. Patchy areas of restricted diffusion in the left basal ganglia consistent with acute to subacute infarctions. 2. Atrophy and extensive chronic small vessel ischemic change. Alfie Clayton MD Physical Exam HEENT: Normocephalic; atraumatic; no jaundice. CHEST: CTA CARDIAC: RRR ABDOMEN: Soft, nondistended, nontender; no hepatosplenomegaly; bowel sounds are present in all four quadrants. PEG tube site without redness or swelling. EXTREMITIES: No clubbing, cyanosis, or edema. LOGISTICS LOSS PREVENTION MANAGER: Right sided weakness (Yadi John) Assessment and Plan Plan ASSESSMENT: - Dysphagia, Poor po intake. S/P acute left basal ganglia CVA. ST is following and has recommended a puree diet with nectar consistency thickened liquids, but she has been taking very minimal po. S/P EGD with PEG tube placement (09/17/16)---> Large HH. Site without redness or swelling or drainage. TF started and she is tolerating so far. PLAN: - S/P PEG tube placement - Glucerna 1.0 @ 30, increasing to GR of 60mls/hr - Abdominal binder - GI will sign off, please reconsult as needed - Pt seen and examined by Dr. Victoria and myself and this note is written on his behalf (Yadi John) Physician Comments Patient seen and examined Agree with above Continue with current supportive care Monitor labs We will sign off (Rajat Victoria MD) Yadi John Sep 17, 2016 15:15 Rajat Victoria MD Sep 17, 2016 22:45
[2016-09-17] MEDS: DONEPEZIL HCL 5 MG TAB PO SCH (22:36)
[2016-09-17] MEDS: METOPROLOL TARTRATE 25 MG TAB PO SCH (22:36)
[2016-09-18] VITALS (10 sets, daily range): BP systolic 154–178; BP diastolic 79–95; PULSE 102–116; RESP 15–24; TEMP 97.3–98.3; O2SAT 96–100
[2016-09-18] MEDS: INSULIN ASPART SUPPLEMENTAL SCALE SQ SCH ×4 (05:46→21:43)
[2016-09-18] MEDS: SODIUM CHLORIDE 0.9% FLUSH 5 ML FLUSH IVF SCH ×2 (07:59→21:00)
[2016-09-18] MEDS: ARTIFICIAL TEARS OPTH SOLN 15 ML BTL EACH EYE SCH ×2 (07:59→21:00)
[2016-09-18] MEDS: SODIUM CHLOR 0.9% 1000 ML INJ 1,000 ML IV SCH (08:00)
[2016-09-18] MEDS: ATORVASTATIN 10 MG TAB PO SCH (08:00)
[2016-09-18] MEDS: FAMOTIDINE 20 MG TAB PO SCH ×2 (08:00→21:00)
--- NOTE | 2016-09-18 11:48 | HHI.PR ---
Subjective Hospital Day: 6 Subjective Remarks Speaking out, rambling speech. No one in room Opens eyes, follows with verbal stimuli Nonspeaking, but does appear to understand simple commands No facial grimace Right facial droop, patient will smile on command Alert Review of Systems Constitutional Constitutional: Weakness (generalized. 10 point ROS done, positives include generalized weakness and right facial droop, not speaking, . All other systems negative.) Constitutional Remarks rt. facial droop 10 point review obtained. Positives noted on record otherwise negative exam. Rhonchi noted today, mild Pulmonary Pulmonary Remarks Mild rhonchi Musculoskeletal MS: Weakness Neurologic Neurologic Remarks Alert, unrecognized speech random, even with no one in room. Vitals/Results Intake & Output 09/17/16 09/17/16 09/18/16 15:00 23:00 07:00 Intake Total 0 ml 2643 ml Balance 0 ml 2643 ml Intake Oral 0 ml 0 ml IV Total 1847 ml Tube Feeding 796 ml # Voids 2 3 4 # Bowel Movements 1 0 0 Vital Signs Vital Signs Date Time Temp Pulse Resp B/P Pulse Ox O2 Delivery O2 Flow Rate FiO2 09/18/16 08:00 98.1 104 24 163/79 97 09/18/16 05:05 98.3 106 16 157/83 98 09/17/16 23:58 97.7 55 16 149/83 97 09/17/16 22:30 117 09/17/16 21:30 98.0 119 16 169/70 97 09/17/16 16:00 97.0 90 18 163/87 94 09/17/16 12:00 97.8 98 18 136/71 98 CBC/BMP: 09/15/16 0612 09/15/16 0612 Lab Results Laboratory Tests Test 09/15/16 06:12 White Blood Count 12.1 TH/MM3 Red Blood Count 4.28 MIL/MM3 Hemoglobin 12.4 GM/DL Hematocrit 36.5 % Mean Corpuscular Volume 85.2 FL Mean Corpuscular Hemoglobin 29.0 PG Mean Corpuscular Hemoglobin 34.0 % Concent Red Cell Distribution Width 13.7 % Platelet Count 177 TH/MM3 Mean Platelet Volume 10.3 FL Sodium Level 143 MEQ/L Potassium Level 3.5 MEQ/L Chloride Level 112 MEQ/L Carbon Dioxide Level 20.6 MEQ/L Anion Gap 10 MEQ/L Blood Urea Nitrogen 15 MG/DL Creatinine 1.02 MG/DL Estimat Glomerular Filtration 53 ML/MIN Rate Random Glucose 171 MG/DL Calcium Level 8.3 MG/DL Imaging Remarks Last Impressions Head CT 09/12/16 0000 Signed Impressions: Service Date/Time: August 18:48 - CONCLUSION: No acute intracranial findings Lv Alaniz MD Chest X-Ray 09/12/16 0000 Signed Impressions: Service Date/Time: August 22:57 - CONCLUSION: No acute disease. Jose Judd MD Carotid Artery Ultrasound 09/12/16 0000 Signed Impressions: Service Date/Time: August 09:05 - CONCLUSION: 1. Mild to moderate atherosclerotic plaque bilaterally, as above. However, velocity measurements indicate less than 50%% stenosis within both internal carotid arteries. 2. There is antegrade flow within both vertebral arteries. Lv Hebert MD Brain MRI 09/11/16 0000 Signed Impressions: Service Date/Time: Sunday, September 11, 2016 20:26 - CONCLUSION: 1. Patchy areas of restricted diffusion in the left basal ganglia consistent with acute to subacute infarctions. 2. Atrophy and extensive chronic small vessel ischemic change. Alfie Clayton MD Physical Exam General General Appearance: No Acute Distress, Comfortable, Malnourished Eyes Eye Exam: Pupils Equal, Pupils Reactive Ears & Nose Ears & Nose Exam: Nasal Mucosa [place] Throat Throat Exam: Oral Mucosa [place] & Moist Neck Neck Exam: Neck Supple, Trachea Midline Pulmonary Resp Exam: Breath Sounds Equal, No Distress, Rhonchi, Decreased Bases, Poor Inspiratory Effort Resp Remarks Small amount of rhonchi and upper chiu Cardiology CV Exam: Regular, Normal Sinus Rhythm Gastrointestinal/Abdomen GI Exam: Soft, Non-Tender, Bowel Sounds Present, Non-Distended GI Remarks New PEG tube in the past 48 hours. Tube feedings increased to 60 cc an hour Musculoskeletal MS Exam: Joints Intact, Unable to Ambulate Integumentary Skin Exam: Warm, Dry Extremeties Extremities Exam: No Edema, Pedal Pulses Palpable Neurologic Neuro Exam: Awake Neuro Remarks Does not following simple commands, random garbling speech, follows with eyes VTE Prophylaxis VTE Prophylaxis Meds: Heparin Assessment/Plan Assessment/Plan ASSESSMENT AND PLAN . Acute CVA . UTI . . ARF / CKD . sp Hyperkalemia now resolved. . History of Alzheimer's dementia. . Diabetes mellitus . History of GERD. . History of hypertension. . Dysphagia leukocytosis mild, essentially unchanged. Some rhonchi noted. Very possible patient is having some aspiration of her secretions. PLAN appreciate neuro input MRI +ve Left BG CVA acute vs subacute repeat CT head no acute changes/no bleed Plavix added by Neuro cont ASA Carotid US mild plaqing b/l ICA , approx 50 % stenosis, medical management Echo , NL LVF / EF 70 % Swallow evaluation, rec. Pureed with Thickener added instructed sister to sit patient straight up, always thicken liquids and foods. High risk for aspiration PT/OT/ST eval Ur c/s Klebsiella Pna, Sensitive Continue Ceftin poor PO intake PEG tube placed on 09-16, tube feedings at 60 cc an hour. Tolerating without distress. No nausea vomiting Increase rate for toleration and look at discharge to snf. Discussing options with corrections caseworker and family. accu checks qac & qhs pepcid for GI prophylaxis Heparin for DVT prophylaxis DNR status CM for discharge planning, [facility] didn't accept. Spoke to case management again today. Looking at another SNF facility, [facility], which has accepted her. Discussed with sister 1-31 appreciate GI input. S/P peg tube 09/16 D/W CM D/W Dr. Azul This patient was seen by myself and Dr. Azul, this note is written on his behalf. Holley Nassar Sep 18, 2016 11:48
[2016-09-18] MEDS: METOPROLOL TARTRATE 25 MG TAB PO SCH (21:00)
[2016-09-18] MEDS: DONEPEZIL HCL 5 MG TAB PO SCH (21:00)
[2016-09-19] MEDS: SODIUM CHLOR 0.9% 1000 ML INJ 1,000 ML IV SCH (00:35)
[2016-09-19 04:40] VITALS: BP_SYST 168; BP_SYST 177; BP_DIAS 106; BP_DIAS 92; PULSE 107; RESP 22; TEMP 97.7; O2SAT 98
[2016-09-19] MEDS: INSULIN ASPART SUPPLEMENTAL SCALE SQ SCH ×2 (06:14→11:00)
[2016-09-19 07:25] LABS: BICARBONATE 21.5 MEQ/L (21.0-32.0)
[2016-09-19 07:56] VITALS: PULSE 103
[2016-09-19 08:00] VITALS: BP 161/80; PULSE 97; RESP 16; TEMP 98.4; O2SAT 97
[2016-09-19] MEDS: ARTIFICIAL TEARS OPTH SOLN 15 ML BTL EACH EYE SCH (08:50)
[2016-09-19] MEDS: FAMOTIDINE 20 MG TAB PO SCH (08:50)
[2016-09-19] MEDS: ASPIRIN EC 81 MG TABEC PO SCH (08:50)
[2016-09-19] MEDS: SODIUM CHLORIDE 0.9% FLUSH 5 ML FLUSH IVF SCH (08:50)
[2016-09-19] MEDS: ATORVASTATIN 10 MG TAB PO SCH (08:50)
[2016-09-19] MEDS: CLOPIDOGREL 75 MG TAB PO SCH (08:51)
--- NOTE | 2016-09-19 11:05 | HHI.PR ---
Subjective Hospital Day: 6 Subjective Remarks Patient pulled PEG tube yesterday Nonverbal Not following commands consistently No acute changes overnight Per nursing, daughter does not want patient to have PEG tube insertion, requesting hospice consult Review of Systems Constitutional Constitutional: Weakness (generalized. 10 point ROS done, positives include generalized weakness and right facial droop, not speaking, . All other systems negative.) Constitutional Remarks unable to do ROS Musculoskeletal MS: Weakness Vitals/Results Intake & Output 09/18/16 09/18/16 09/19/16 15:00 23:00 07:00 Intake Total 1000 ml 744 ml 588 ml Balance 1000 ml 744 ml 588 ml Intake Oral 0 ml 0 ml IV Total 525 ml 744 ml 588 ml Tube Feeding 375 ml Tube Irrigant 100 ml # Voids 2 4 6 # Bowel Movements 0 4 0 Vital Signs Vital Signs Date Time Temp Pulse Resp B/P Pulse Ox O2 Delivery O2 Flow Rate FiO2 09/19/16 04:40 Room Air 09/19/16 04:40 97.7 107 22 177/106 98 168/92 09/18/16 23:50 98.0 109 20 164/95 100 09/18/16 23:50 Room Air 09/18/16 21:12 98.2 105 18 165/87 100 09/18/16 21:12 Room Air 09/18/16 20:05 114 09/18/16 19:30 98.0 116 15 170/88 100 09/18/16 17:51 102 09/18/16 16:00 97.3 114 20 154/91 96 09/18/16 15:00 97.3 108 15 154/91 97 09/18/16 12:00 98.2 108 20 178/84 98 CBC/BMP: 09/15/16 0612 09/19/16 0608 Lab Results Laboratory Tests Test 09/19/16 06:08 Sodium Level 141 MEQ/L Potassium Level 3.0 MEQ/L Chloride Level 108 MEQ/L Carbon Dioxide Level 21.5 MEQ/L Anion Gap 12 MEQ/L Blood Urea Nitrogen 12 MG/DL Creatinine 0.86 MG/DL Estimat Glomerular Filtration 64 ML/MIN Rate Random Glucose 158 MG/DL Calcium Level 8.0 MG/DL Physical Exam General General Appearance: No Acute Distress, Comfortable, Malnourished Eyes Eye Exam: Pupils Equal, Pupils Reactive Ears & Nose Ears & Nose Exam: Nasal Mucosa [employer] Throat Throat Exam: Oral Mucosa [employer] & Moist Neck Neck Exam: Neck Supple, Trachea Midline Pulmonary Resp Exam: Breath Sounds Equal, No Distress, Decreased Bases Cardiology CV Exam: Regular, Normal Sinus Rhythm Gastrointestinal/Abdomen GI Exam: Soft, Non-Tender, Bowel Sounds Present, Non-Distended GI Remarks PEG site with insertion site intact, peg pulled per pt yesterday Musculoskeletal MS Exam: Joints Intact, Unable to Ambulate Integumentary Skin Exam: Warm, Dry Extremeties Extremities Exam: No Edema, Pedal Pulses Palpable Neurologic Neuro Exam: Awake Neuro Remarks right sided weakness speech garbled VTE Prophylaxis VTE Prophylaxis Meds: Heparin PUD Prophylasis PUD Remarks Pepcid Assessment/Plan Assessment/Plan ASSESSMENT AND PLAN . Acute CVA . UTI . . ARF / CKD . sp Hyperkalemia now resolved. . History of Alzheimer's dementia. . Diabetes mellitus . History of GERD. . History of hypertension. . Dysphagia leukocytosis mild, essentially unchanged. Some rhonchi noted. Very possible patient is having some aspiration of her secretions. PLAN appreciate neuro input MRI +ve Left BG CVA acute vs subacute repeat CT head no acute changes/no bleed Plavix added by Neuro cont ASA Carotid US mild plaqing b/l ICA , approx 50 % stenosis, medical management Echo , NL LVF / EF 70 % PT/OT/ST eval Ur c/s Klebsiella Pna, Sensitive Continue Ceftin Dysphagia Is status post PEG placement 09/16/2015, was on tube feeding Patient pulled PEG tube out yesterday, GI recommended reinsertion Per daughter, request hospice consult, doesn't want procedure We will keep patient nothing by mouth Continue with cautious hydration accu checks qac & qhs pepcid for GI prophylaxis Heparin for DVT prophylaxis DNR status Poor prognosis We will wait after hospice evaluates, possible discharge to hospice care facility today D/W RN D/W Dr. Azul This patient was seen by myself and Dr. Azul, this note is written on his behalf. Chapis Guerrero Sep 19, 2016 11:05
[2016-09-19] MEDS ORDERED: POTASSIUM CL 40 MEQ/30 ML LIQ UDC PO ONE (11:15)
[2016-09-19 12:00] VITALS: BP 158/79; PULSE 103; RESP 16; TEMP 97.7; O2SAT 97
[2016-09-19] MEDS ORDERED: ASPI81TA11 PO (15:03)
[2016-09-19] MEDS ORDERED: PLAV75TA29 PO (15:03)
[2016-09-19] MEDS ORDERED: LIPI10TA PO (15:03)
--- NOTE | 2016-09-19 15:04 | HHI.DCPOC ---
Discharge Care Plan Diagnosis: (1) Hyperkalemia (2) Generalized weakness (3) UTI (urinary tract infection) (4) Stroke Your Health Problems Are: Anxiety Difficulty with ADL Goals to Promote Your Health * To prevent worsening of your condition and complications * To maintain your health at the optimal level Directions to Meet Your Goals Take your medications as prescribed Follow your dietary instruction Follow activity as directed Keep your appointments as scheduled Take your immunizations and boosters as scheduled If your symptoms worsen call your PCP, if no PCP go to Urgent Care Center or Emergency Room Smoking is Dangerous to Your Health. Avoid second hand smoke Call the 24-hour hour crisis hotline for domestic abuse at Chapis Guerrero Sep 19, 2016 15:04
--- NOTE | 2016-09-19 15:05 | HHI.DS ---
Discharge Summary Admission Date Sep 11, 2016 at 09:32 Discharge Date: Sep 19, 2016 Admitting Diagnosis generalized weakness, hyperkalemia, UTI (1) Generalized weakness (2) Stroke (3) Hyperkalemia (4) UTI (urinary tract infection) CBC/BMP: 09/15/16 0612 09/19/16 0608 Significant Findings Laboratory Tests Test 09/19/16 06:08 Potassium Level 3.0 MEQ/L (3.5-5.1) Chloride Level 108 MEQ/L (98-107) Estimat Glomerular Filtration 64 ML/MIN (>89) Rate Random Glucose 158 MG/DL (74-106) Calcium Level 8.0 MG/DL (8.5-10.1) Imaging Last Impressions Head CT 09/12/16 0000 Signed Impressions: Service Date/Time: August 18:48 - CONCLUSION: No acute intracranial findings Lv Alaniz MD Chest X-Ray 09/12/16 0000 Signed Impressions: Service Date/Time: August 22:57 - CONCLUSION: No acute disease. Jose Judd MD Carotid Artery Ultrasound 09/12/16 0000 Signed Impressions: Service Date/Time: August 09:05 - CONCLUSION: 1. Mild to moderate atherosclerotic plaque bilaterally, as above. However, velocity measurements indicate less than 50%% stenosis within both internal carotid arteries. 2. There is antegrade flow within both vertebral arteries. Lv Hebert MD Brain MRI 09/11/16 0000 Signed Impressions: Service Date/Time: Sunday, September 11, 2016 20:26 - CONCLUSION: 1. Patchy areas of restricted diffusion in the left basal ganglia consistent with acute to subacute infarctions. 2. Atrophy and extensive chronic small vessel ischemic change. Alfie Clayton MD Hospital Course . Acute CVA . UTI . . ARF / CKD . sp Hyperkalemia now resolved. . History of Alzheimer's dementia. . Diabetes mellitus . History of GERD. . History of hypertension. . Dysphagia leukocytosis mild, essentially unchanged. Some rhonchi noted. Very possible patient is having some aspiration of her secretions. PLAN appreciate neuro input MRI +ve Left BG CVA acute vs subacute repeat CT head no acute changes/no bleed Plavix added by Neuro cont ASA Carotid US mild plaqing b/l ICA , approx 50 % stenosis, medical management Echo , NL LVF / EF 70 % PT/OT/ST eval Ur c/s Klebsiella Pna, Sensitive Continue Ceftin Dysphagia Is status post PEG placement 09/16/2015, was on tube feeding Patient pulled PEG tube out yesterday, GI recommended reinsertion Per daughter, request hospice consult, doesn't want procedure We will keep patient nothing by mouth Continue with cautious hydration accu checks qac & qhs pepcid for GI prophylaxis Heparin for DVT prophylaxis DNR status Poor prognosis We will wait after hospice evaluates, possible discharge to hospice care facility today Pt Condition on Discharge: Stable Discharge Disposition: Hospice/Med Facility Discharge Instructions DIET: Follow Instructions for: Heart Healthy Diet Speech Therapy-Diet Recommends: Pureed, [place] Thickened Liquids Activities you can perform: Weight Bearing as Evy New Medications: Aspirin DR (Aspirin EC) 81 Mg Tabdr 81 MG PO DAILY Stroke Prevention #30 TAB Atorvastatin (Lipitor) 10 Mg Tab 10 MG PO DAILY Stroke Prevention #30 TAB Clopidogrel (Plavix) 75 Mg Tab 75 MG PO DAILY Stroke Prevention #30 TAB Continued Medications: Acetaminophen (Mapap) 325 Mg Tab 650 MG PO Q6HR PRN PAIN Ref 0 TAB Fzoetwqi-Oscimdrsu-Zobqzkahvnc Liq (Sameera-Lanta Liq) 200-200-20 Mg/5 Ml Susp 10 ML PO Q8HR PRN DYSPEPSIA Cholestyramine (Questran) 4 Gm/Pkt Powd 4 GM PO QID 1 packet contains 4gm of cholestyramine. PRN X 3 LS / 24HRS #1 Ref 0 BOX Donepezil (Aricept) 5 Mg Tab 5 MG PO HS Dementia #30 Ref 0 TAB Glimepiride (Amaryl) 1 Mg Tab 0.5 MG PO DAILY Take with breakfast or first main meal Blood Sugar Management # 30 Ref 0 TAB Magnesium Hydroxide Liq (Milk of Magnesia Liq) 400 Mg/5 Ml Susp 30 ML PO DIRECTED PRN NO BM WITHIN 3 DAYS #1 Ref 0 BOTTLE Metoprolol Tartrate (Metoprolol Tartrate) 25 Mg Tab 25 MG PO HS 12.5 #60 Ref 0 TAB Polyethylene Glycol 3350 Powder (Miralax Powder) 17 Gm Powd 17 GM PO BID Mix and dissolve one measuring cap-ful (17 grams) in water or juice. PRN CONSTIPATION #1 Ref 0 BOTTLE Propylene Glycol Opth Drops (Systane Balance Uatsdin Opth Drops) 0.6% Soln 1 DROP EACH EYE BID DRY EYE Ref 0 BOTTLE Ranitidine (Ranitidine) 150 Mg Cap 150 MG PO BID #60 Ref 0 CAP Discontinued Medications: Lisinopril (Lisinopril) 20 Mg Tab 20 MG PO DAILY #30 Ref 0 TAB Chapis Guerrero Sep 19, 2016 15:05
[2016-09-19 16:00] VITALS: BP 165/84; PULSE 101; RESP 14; TEMP 98.4; O2SAT 97
== END 2016-09-19 19:40 | disposition hospice, home (50) | DRG 65 ==
LOC: NEPE 14:09 → NEDH 19:19 → UNDOADMOB 19:19 → NEDA 19:19 → NEDH 23:24 → NEPHCDU 09-11 00:43 → OBSVTOIN 09-11 09:32 → N04B 09-14 01:42
PROVIDERS: ADMIT Specialist; ATTEND Specialist
PROC: 0DH68UZ Insertion of Feeding Device into Stomach, Via Natural or Artificial Opening Endoscopic (ICD-10-PCS; principal; 2016-09-16 11:36)
DX: I63.9 Cerebral infarction, unspecified (principal); N39.0 Urinary tract infection, site not specified; N17.9 Acute kidney failure, unspecified; E46 Unspecified protein-calorie malnutrition; E11.22 Type 2 diabetes mellitus with diabetic chronic kidney disease; G81.91 Hemiplegia, unspecified affecting right dominant side; R13.10 Dysphagia, unspecified; E87.5 Hyperkalemia; Z68.1 Body mass index [BMI] 19.9 or less, adult; Z79.84 Long term (current) use of oral hypoglycemic drugs; E86.0 Dehydration; R47.1 Dysarthria and anarthria; R29.810 Facial weakness; B96.1 Klebsiella pneumoniae [K. pneumoniae] as the cause of diseases classified elsewhere; N18.9 Chronic kidney disease, unspecified; I12.9 Hypertensive chronic kidney disease with stage 1 through stage 4 chronic kidney disease, or unspecified chronic kidney disease; F02.80 Dementia in other diseases classified elsewhere, unspecified severity, without behavioral disturbance, psychotic disturbance, mood disturbance, and anxiety; G30.9 Alzheimer's disease, unspecified; K21.9 Gastro-esophageal reflux disease without esophagitis; I65.23 Occlusion and stenosis of bilateral carotid arteries; K44.9 Diaphragmatic hernia without obstruction or gangrene; I25.10 Atherosclerotic heart disease of native coronary artery without angina pectoris; E78.5 Hyperlipidemia, unspecified; Z66 Do not resuscitate; Z23 Encounter for immunization
CPT/HCPCS: 70450; 70551; 71010; 76937; 80048; 80053; 80061; 81001; 82140; 82948; 85025; 85027; 85610; 85730; 87077; 87086; 87186; 90471; 90732; 93005; 93306; 93880; 94640; 94664; 96365; 96375; G0009; G0378; G8987-GP; G8988-GP; J0690; J0696; J1644; J1815; J2060; J3010; J7030; P9612